=== PATIENT | female | born 1965 | race Caucasian/White ===

== ENCOUNTER → 2016-07-18 | Outpatient (CLI) | payer OTHER ==
[~2016-07-18] MED LIST: ESCI1TAB6 PO; FERR1TAB23 PO; FOLI1TAB7 PO; GABA-113 PO; HYDR-3419 PO; HYDR-5688 PO; HYDR25TA4 PO; MTR600X PO; ZNF4 PO
--- NOTE | 2016-07-18 11:14 | DIAGNOSTIC IMAGING REPORT ---
LUMBAR SPINE MRI HISTORY: Back pain. Lumbar radiculopathy. M54.16 Lumbar [id number] TECHNIQUE: Multiplanar multisequence MRI of the lumbar spine was performed without the use of contrast. COMPARISON: 03/20/2014 FINDINGS: For the purpose of the report the L5-S1 disc space will be located on axial image 27 of 30. Moderate degenerative disc changes throughout. This is similar as compared to the prior study. No evidence for compression deformity. L1-L2: No significant central canal or neural foraminal narrowing. L2-L3: Minimal broad-based disc bulge. Mild narrowing left neuroforamina. No major change in the prior study read L3-L4: Mild central disc herniation. Slightly progressive from the prior study. Mild impact central aspect anterior thecal sac. Minimal narrowing of the neuroforamina bilaterally. L4-L5: Mild broad-based disc herniation. Stable cyst slightly increased in prominence of the prior study. L5-S1: Mild left central disc herniation. Similar compared to the prior study. IMPRESSION: 1. Bulging discs and mild disc herniations at multiple levels as discussed. 2. Mild to moderate impact upon the thecal sac most prominent at L3-L4 and L4-L5 minimally progressive from the prior study. 3. Moderate degenerative disc change as well as degenerative changes of posterior facets unchanged from the prior study. Electronically signed by: Jovanny Langston M.D. 07/18/2016 11:12 AM Dictated Date/Time: 07/18/2016 11:00 AM
== END | disposition home or self-care (01) ==
LOC: C.MRI 09:54
PROVIDERS: ATTEND Nurse Practitioner
DX: M47.26 Other spondylosis with radiculopathy, lumbar region (principal); M51.16 Intervertebral disc disorders with radiculopathy, lumbar region

== ENCOUNTER 2016-09-03 09:39 | Emergency (ER) | payer OTHER ==
[~2016-09-03] VITALS: Ht 165.1 cm; Wt 68.1 kg
[~2016-09-03 09:39] MED LIST changes: -ESCI1TAB6 PO; -FOLI1TAB7 PO; -GABA-113 PO; -HYDR-5688 PO; -ZNF4 PO
[2016-09-03 09:40] VITALS: TEMP 36.6; Ht 165.1 cm; Wt 68.1 kg
[2016-09-03] MEDS ORDERED: OXYCODONE HCL IR 5 MG TAB (IMMEDIATE RELEASE) PO STA (09:53)
[2016-09-03] MEDS ORDERED: FOLI1TAB7 PO (10:28)
[2016-09-03] MEDS ORDERED: ESCI1TAB6 PO (10:36)
[2016-09-03] MEDS ORDERED: ZNF4 PO (10:36)
[2016-09-03] MEDS ORDERED: GABA-113 PO (10:36)
[2016-09-03] MEDS ORDERED: KETOROLAC TROMETHAMINE 60 MG/2 ML VIAL IM STA (11:01)
[2016-09-03] MEDS ORDERED: MoRPHine SULFATE 10 MG/ML CARP/VIAL IM STA (11:01)
[2016-09-03] MEDS ORDERED: DIPHTHERIA/TETANUS/PERTUSSIS 0.5 ML SYR/VIAL IM. ONE (11:15)
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
[2016-09-03] MEDS ORDERED: HYDR-5688 PO (12:40)
[2016-09-03 12:43] VITALS: BP 172/134; PULSE 63; O2SAT 97
== END 2016-09-03 12:44 | disposition home or self-care (01) ==
LOC: C.EDB 09:41
DX: T20.10XA Burn of first degree of head, face, and neck, unspecified site, initial encounter (principal); X03.0XXA Exposure to flames in controlled fire, not in building or structure, initial encounter; F17.210 Nicotine dependence, cigarettes, uncomplicated; Z90.711 Acquired absence of uterus with remaining cervical stump; Z79.899 Other long term (current) drug therapy; Z23 Encounter for immunization

== ENCOUNTER → 2017-03-12 | Outpatient (CLI) | payer OTHER ==
[~2017-03-12] MED LIST changes: +ESCI1TAB6 PO; -FERR1TAB23 PO; +FOLI1TAB7 PO; +GABA-113 PO; -HYDR-3419 PO; -HYDR25TA4 PO; -MTR600X PO; +ZNF4 PO
[2017-03-12 17:56] LABS: BASO % 0.9 %; BASO ABS # 0.06 K/uL (0-0.2); COMPLETE YES; EOS % 2.6 %; HEMATOCRIT 46.2 % (37-47); IG% 0.3 %; LYMPH % 34.3 %; LYMPH ABS # 2.22 K/uL (1.2-3.4); MEAN CELL VOLUME 103.8 fL (80-100); MEAN CORPUSCULAR HEMOGLOBIN 34.6 pg (25-34); MEAN CORPUSCULAR HGB CONC 33.3 g/dl (32-36); MEAN PLATELET VOLUME 10.7 fL (7.4-10.4); MONO % 11.9 %; PLATELET COUNT 301 K/uL (130-400); RED BLOOD COUNT 4.45 M/uL (4.2-5.4); WHITE BLOOD COUNT 6.47 K/uL (4.8-10.8)
[2017-03-12 18:06] LABS: ALT/SGPT 33 U/L (12-78); AST/SGOT 26 U/L (15-37); BLOOD UREA NITROGEN 10 mg/dl (7-18); BUN/CREATININE RATIO 12.8 (10-20); CALCIUM 9.4 mg/dl (8.5-10.1); CARBON DIOXIDE 31 mmol/L (21-32); CHLORIDE 107 mmol/L (98-107); CHOLESTEROL 183 mg/dl (0-200); CREATININE 0.76 mg/dl (0.60-1.20); GLUCOSE 104 mg/dl (70-99); POTASSIUM 3.9 mmol/L (3.5-5.1); SODIUM 139 mmol/L (136-145)
[2017-03-12 18:11] LABS: URINE APPEARANCE CLEAR (CLEAR); URINE BILIRUBIN NEG (NEG); URINE COLOR YELLOW; URINE NITRITE NEG (NEG); URINE PH 6.5 (4.5-7.5); URINE SPECIFIC GRAVITY 1.022 (1.000-1.030); UROBILINOGEN NEG (NEG); ZZUR CULT IF INDIC CLEAN CATCH NO
[2017-03-12 18:13] LABS: MANUAL MICROSCOPIC REQUIRED? NO; REVIEW REQ? NO
[2017-03-12 18:14] LABS: ALB/GLOB RATIO 0.9 (0.9-2); ALKALINE PHOSPHATASE 110 U/L (45-117); CHOLESTEROL/HDL RATIO 2.7; HDL CHOLESTEROL 67 mg/dl; LDL CHOLESTEROL CALCULATED 100 mg/dl; THYROID STIMULATING HORMONE 0.853 uIu/ml (0.300-4.500); TRIGLYCERIDES 81 mg/dl (0-150); VERY LOW DENSITY LIPOPROT CALC 16 mg/dl
== END | disposition home or self-care (01) ==
LOC: C.LABBFT 11:55
PROVIDERS: ATTEND Physician Assistant Medical
DX: R63.4 Abnormal weight loss (principal)

== ENCOUNTER → 2017-04-27 | Outpatient (CLI) | payer OTHER ==
[~2017-04-27] MED LIST changes: -FOLI1TAB7 PO; +FOLI1TAB8 PO
[2017-04-28 06:48] LABS: HEMOGLOBIN A1C 5.4 % (4.5-5.6)
== END | disposition home or self-care (01) ==
LOC: C.LABBFT 12:07
PROVIDERS: ATTEND Physician Assistant Medical
DX: R79.9 Abnormal finding of blood chemistry, unspecified (principal)

== ENCOUNTER → 2017-05-01 | Outpatient (CLI) | payer OTHER | END | disposition home or self-care (01) | LOC: C.RAD1850 11:42 | DX: R05 Cough (principal) ==

== ENCOUNTER 2017-11-22 13:45 | Emergency (ER) | payer OTHER ==
[~2017-11-22] VITALS: Ht 165.1 cm; Wt 61.8 kg
[2017-11-22 13:47] VITALS: TEMP 36.8; Ht 165.1 cm; Wt 61.8 kg
--- NOTE | 2017-11-22 14:37 | DIAGNOSTIC IMAGING REPORT ---
R HAND MIN 3 VIEWS ROUTINE CLINICAL HISTORY: Right hand pain. Fall. COMPARISON: Right hand radiographs July 10, 2011. FINDINGS: Rings are present on the third, fourth and fifth fingers. A nonunited scaphoid waist fracture similar in appearance to exam of July 10, 2011. There is an age indeterminate fracture of the distal shaft of the right fifth metacarpal. This fracture may be acute. No additional acute fractures are identified. IMPRESSION: 1. Mildly angulated fracture of the distal shaft of the right fifth metacarpal. This fracture is age indeterminate and may be acute. 2. 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 Electronically signed by: Que Flores M.D. 11/22/2017 2:36 PM Dictated Date/Time: 11/22/2017 2:33 PM
[2017-11-22] MEDS ORDERED: LISI10TA PO (14:48)
[2017-11-22] MEDS ORDERED: KETO10TA PO (15:02)
[2017-11-22 15:14] VITALS: BP 181/111; PULSE 65; O2SAT 98
--- NOTE | 2017-11-24 05:56 | EMERGENCY ROOM VISIT NOTE ---
ED Visit Note First contact with patient: 13:56 Chief Complaint: I think I broke my right hand. History of Present Illness: Ms. Grady is a 52-year-old white female who ambulates into the ED complaining of right hand pain. Patient reports approximately 2 hours ago she reports she was gardening and fell and landed on her right hand. She denies lightheaded and dizziness before the fall, striking her head or having a loss of consciousness at the time of the fall and she denies all signs of head injury. She reports she immediately had pain over the right fourth and fifth metacarpals. Since that time her pain has been constant. She describes her discomfort as a combination of sharp and throbbing. She rates her discomfort 9/ 10. Her pain is minimally extending to the inferior border of the wrist. Her pain worsens with all movements and palpation. She has not identified any alleviating factors related to the pain. She has not taken any medications for pain prior to arrival at the hospital. Associated with her pain she reports she has a tingling sensation in her fingers. Historically patient reports that she fell approximately 8-9 months ago injuring her hand and felt like it could have been broken but never sought medical attention. Additionally she denies neck pain, shoulder pain, forearm pain, hand weakness/ numbness. Review of Systems: As noted above in history of present illness. Past Medical History: Lumbar radiculopathy, dysmenorrhagia. Current Medications: Medications Dose Route/Sig Max Daily Dose Days Date Category Prinivil (Lisinopril) 10 Mg Tab 10 Mg PO DAILY 11/22/17 Reported Neurontin (Gabapentin) 300 Mg Cap 300 Mg PO TID 09/03/16 Reported Allergies to Medications: Formaldehyde, latex. Social History: Patient is not employed; she feels safe in her home environment ; she admits to tobacco use. Physical Examination: Vital Signs: Date Time Temp Pulse Resp B/P (MAP) Pulse Ox O2 Delivery O2 Flow Rate FiO2 11/22/17 15:14 65 20 181/111 98 Room Air 11/22/17 13:47 36.8 73 16 191/106 96 Room Air GENERAL: 52-year-old female in moderate distress due to pain, nontoxic- appearing, afebrile and hemodynamically stable. NEUROLOGICAL: Awake, alert and oriented to person, place and time. Answering questions appropriately and following commands. Normal gait. SKIN: Warm, dry and pink. No soft tissue trauma noted. HEENT: Atraumatic and normocephalic. RIGHT UPPER EXTREMITY: No gross bony deformity. No tenderness in the shoulder, upper arm, elbow and forearm. Moderate tenderness of the fourth and fifth metatarsals without bony deformity, bony crepitus. Mild swelling but no ecchymosis. She refused to do range of motion of the fingers at the PIP and DIP joint level. ED Course: Patient is assessed as noted above. Patient's medication list was reviewed. Patient was given ice for pain and comfort. Right Hand X-Rays: Were read by myself and the radiologist showing a mildly angulated fracture of the distal shaft of the fifth metacarpal of questionable age. 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 Patient's wrist was placed in an Ortho-Glass ulnar gutter splint. Patient was educated about today's findings and instructed on her treatment plan ; she verbalizes understanding and agreement with this plan. Clinical Impression: Fracture fifth metacarpal right hand. Disposition: Patient discharged to home in stable condition; prior to departure she was reassessed and subjectively reported she was feeling the same. Plan: Patient was encouraged to continue her current narcotic prescription plan. Patient was prescribed 10 mg Toradol every 6 hours to alternate between her narcotics. Patient was encouraged use ice on the area for pain and swelling 5-6 times a day for 20-30 minutes. Patient was encouraged to stay in her splint until followed up with her client resolution specialist for definitive care and treatment. Patient was encouraged return the ED for worsening/uncontrolled pain, uncontrolled swelling, hand weakness/numbness/tingling or any new/concerning symptoms.
== END 2017-11-22 15:32 | disposition home or self-care (01) ==
LOC: C.EDB 13:46 → C.EDD 15:32
DX: S62.326A Displaced fracture of shaft of fifth metacarpal bone, right hand, initial encounter for closed fracture (principal); W19.XXXA Unspecified fall, initial encounter; Y93.H2 Activity, gardening and landscaping; M54.16 Radiculopathy, lumbar region; Z91.040 Latex allergy status; Z72.0 Tobacco use

== ENCOUNTER 2022-06-24 18:01 | Inpatient (IN) ==
[2022-06-24] MEDS ORDERED: MoRPHine SULFATE 10 MG/ML CARP/VIAL IV STA (18:15)
[2022-06-24] MEDS ORDERED: METOCLOPRAMIDE HCL INJ 5 MG/ML 2 ML VIAL IV STA (18:15)
[2022-06-24] MEDS ORDERED: SODIUM CHLORIDE 0.9% 1000ML 2,000 ML IV ONE (18:15)
--- NOTE | 2022-06-24 18:15 | Emergency Department Note ---
Impression & Plan Abdominal pain, Vomiting, Acute dehydration ED Provider Note NAME: MUKESH GUIDO AGE: 57 SEX: F : 1965 ARRIVES VIA: Ambulance INFORMANT: Patient ED PROVIDER(S): Miky Momin DO CHIEF COMPLAINT: abdominal pain HPI: Patient is a 57-year-old female who presents to the ER for severe mid abdominal pain rating up to the left. Associated with nausea and vomiting. Started earlier today. Has been getting worse. Denies any headache or change in vision. No chest pain or shortness of breath. No cough. No dysuria, urgency, or frequency. Last menstrual period was several weeks ago. Pain is currently a 10 out of 10. PAST MEDICAL HISTORY:See Below PAST SURGICAL HISTORY:See Below FAMILY HISTORY:See Below SOCIAL HISTORY:See Below HOME MEDICATIONS:See Below ALLERGIES:See Below VITALS:See Below PHYSICAL EXAMINATION: GENERAL: Sitting up in bed, alert, moderate distress holding abdomen EYE EXAM: normal conjunctiva. OROPHARYNX:mucous membranes are moist LUNGS: Clear to auscultation. Normal chest wall mechanics HEART: no murmurs, S1 normal and S2 normal ABDOMEN: abdomen soft, non-tender, normo-active bowel sounds, no masses, no rebound or guarding. UPPER EXTREMITIES: upper extremities are grossly normal. LOWER EXTREMITIES: No pitting edema. NEURO EXAM: Normal sensorium, cranial nerves II-XII grossly intact, normal speech, no gross weakness of arms, no gross weakness of legs. MEDICAL DECISION MAKING: Patient is a 57-year-old female who presents to the ER for severe mid periumbilical abdominal pain. IV was established and blood work was obtained. Labs show mild leukocytosis of 14,000. Hemoglobin was elevated 16 secondary to contraction/volume depletion. BMP with mild hypokalemia 3.3 LFTs bilirubin was unremarkable. Lipase was normal. UA with small amount of ketones. Alcohol was only 10. COVID-negative. CT abdomen pelvis showed no acute pathology. She was given IV fluids morphine Dilaudid as well as Zofran and Reglan. She still had some intermittent vomiting and abdominal pain. She notes it comes and goes in waves. She is updated bedside. Pressures were still fairly elevated at about 200. She did not take her medications. Discussed with Dr. Brooke for further evaluation management and treatment. Triage Nursing notes reviewed. Limited review of prior medical records performed Vital Signs: reviewed and remarkable for HTN Differential diagnosis: Differential diagnoses includes but is not limited to gastritis, peptic ulcer disease, GERD, gallbladder disease, pancreatitis, small bowel obstruction, appendicitis, diverticulitis, hernia, urinary tract infection, torsion, [/ectopic (if female)], perforation, trauma, infectious. ER treatment provided: See below Diagnostics interpreted by me include EKG and cardiac monitoring as listed below: -Cardiac Monitoring: An order was placed for continuous cardiac monitoring. The monitor shows a rate of 60 with sinus rhythm. -ECG: none -Laboratory studies:Interpreted by me as stated above in MDM and shown below. Imaging studies: Xrays: As interpreted by me:none CTs show: CT abdomen pelvis showed no acute pathology per radiology Consultation(s): Discussed with Dr. Dean Soler for further evaluation management and treatment Procedures:none Critical Care: None Past Med/Surg History Medical History (Updated 06/24/22 @ 22:02 by Miky Momin DO) Carpal tunnel syndrome Carpal tunnel syndrome of left wrist Hypertension Insomnia Lumbar radiculopathy Microscopic hematuria S/P partial hysterectomy Seasonal allergies Smoker Vaginismus Vertigo Surgical History (Updated 04/15/21 @ 13:12 by Octavia Davis RN) H/O: hysterectomy History of History of tonsillectomy Family History (Updated 09/12/21 @ 16:10 by Madelaine Dickens LPN) Father Lung cancer Mother Lung cancer Grandmother Cancer Other Myocardial infarction Denies family history of Ovarian cancer Prostate cancer Breast cancer Colorectal cancer Social History (Updated 11/14/21 @ 13:51 by HAZEL Rose) Smoking Status: Current every day smoker Tobacco Type: Cigarettes Age Started Using Tobacco: 17; packs per day: 1; Cigarettes Per Day: 20-30; Second Hand Exposure: No; Hx Alcohol Use: Yes (wine socially ) Alcohol type: wine Alcohol Intake Frequency: 2-3 x/Week Hx Substance Use: No Preferred Language: Swazi Hearing Ability: Normal 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: No marital status: Current Living Situation: Family current occupational status: employed 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, 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 How many Children do You have: 2 Feels Safe at Home: Yes during the past year weight has: remained stable Allergies Allergies Allergy/AdvReac Type Severity Reaction Status Date / Time formaldehyde Allergy Mild hives Verified 06/24/22 19:36 amlodipine Allergy Unknown Unknown Verified 06/24/22 20:55 diltiazem Allergy Unknown Unknown Verified 06/24/22 20:55 latex Allergy Unknown itching Verified 06/24/22 19:36 levofloxacin Allergy Unknown Unknown Verified 06/24/22 20:56 simvastatin [From Zocor] Allergy Unknown Unknown Verified 06/24/22 20:57 prednisone AdvReac Unknown Verified 06/24/22 19:28 Home Meds Home Medications Medication Instructions Recorded Confirmed gabapentin 300 mg capsule 300 mg PO Q4 10/12/18 06/24/22 ibuprofen 800 mg tablet 800 mg PO TID 04/15/21 06/24/22 amlodipine 5 mg-olmesartan 40 mg 0.5 tab PO DAILY 06/24/22 06/24/22 tablet fexofenadine 180 mg tablet 0 mg PO DIRECTED 06/24/22 06/24/22 pantoprazole 40 mg tablet,delayed 40 mg PO BID 06/24/22 06/24/22 release Previous Rx's Medication Instructions Recorded albuterol sulfate 90 mcg/actuation 2 puff inhalation Q6H PRN 10/12/20 aerosol inhaler (ProAir HFA) shortness of breath or wheezing #8.5 grams cyclobenzaprine 10 mg tablet 10 mg PO TID PRN muscle spasm #30 03/18/22 tabs Results & Data (ED) Vital Signs Vital Signs - 24 hr 06/24/22 18:08 06/24/22 18:13 06/24/22 18:14 Temperature 36.4 C L Temperature Source Oral Pulse Rate 58 L 58 L 57 L Pulse Rate from SpO2 Sensor 63 Pulse Rhythm Regular Pulse Strength Normal Respiratory Rate 26 H 22 Respiratory Effort / Characteristics Non-Labored Respiratory Depth Normal Respiratory Pattern Regular Blood Pressure 227/123 H 215/138 H Blood Pressure Mean 157 163 Pulse Oximetry 100 99 Oxygen Delivery Method Room Air Room Air Sepsis New/Unexplained Change in Mental Status N/A Sepsis Action Taken by Nursing No Action Required 06/24/22 18:02 06/24/22 18:18 06/24/22 18:18 Temperature Temperature Source Pulse Rate 63 51 L Pulse Rate from SpO2 Sensor 65 Pulse Rhythm Regular Pulse Strength Respiratory Rate 22 18 Respiratory Effort / Characteristics Respiratory Depth Respiratory Pattern Blood Pressure 215/138 H Blood Pressure Mean 163 Pulse Oximetry 97 95 Oxygen Delivery Method Room Air Sepsis New/Unexplained Change in Mental Status Sepsis Action Taken by Nursing 06/24/22 18:40 06/24/22 19:00 06/24/22 19:22 Temperature Temperature Source Pulse Rate 62 58 L Pulse Rate from SpO2 Sensor 57 L 66 Pulse Rhythm Pulse Strength Respiratory Rate 20 21 20 Respiratory Effort / Characteristics Respiratory Depth Respiratory Pattern Blood Pressure Blood Pressure Mean Pulse Oximetry 100 99 96 Oxygen Delivery Method Sepsis New/Unexplained Change in Mental Status Sepsis Action Taken by Nursing 06/24/22 19:22 06/24/22 19:30 06/24/22 19:30 Temperature Temperature Source Pulse Rate Pulse Rate from SpO2 Sensor 67 Pulse Rhythm Pulse Strength Respiratory Rate Respiratory Effort / Characteristics Respiratory Depth Respiratory Pattern Blood Pressure 224/110 H 222/115 H Blood Pressure Mean 148 150 Pulse Oximetry 98 Oxygen Delivery Method Sepsis New/Unexplained Change in Mental Status Sepsis Action Taken by Nursing 06/24/22 20:00 06/24/22 20:30 06/24/22 20:59 Temperature Temperature Source Pulse Rate 59 L 57 L 67 Pulse Rate from SpO2 Sensor 62 56 L 67 Pulse Rhythm Pulse Strength Respiratory Rate 20 20 19 Respiratory Effort / Characteristics Respiratory Depth Respiratory Pattern Blood Pressure Blood Pressure Mean Pulse Oximetry 95 98 99 Oxygen Delivery Method Sepsis New/Unexplained Change in Mental Status Sepsis Action Taken by Nursing 06/24/22 20:59 06/24/22 21:00 Temperature Temperature Source Pulse Rate 66 Pulse Rate from SpO2 Sensor 66 Pulse Rhythm Pulse Strength Respiratory Rate 20 Respiratory Effort / Characteristics Respiratory Depth Respiratory Pattern Blood Pressure 214/109 H Blood Pressure Mean 144 Pulse Oximetry 100 Oxygen Delivery Method Sepsis New/Unexplained Change in Mental Status Sepsis Action Taken by Nursing Laboratory Data 06/24/22 18:15 06/24/22 18:15 Lab Results 06/24/22 06/24/22 06/24/22 Range/Units 18:15 18:15 18:23 WBC 14.98 H (4.8-10.8) K/ul RBC 4.98 (4.20-5.40) M/uL Hgb 16.9 H (12.0-16.0) g/dl POC Hgb 17.3 H (12.0-16.0) g/dl Hct 48.2 H (37.0-47.0) % POC Hct 51 H (37-47) % MCV 96.8 (80.0-100.0) fL MCH 33.9 (25.0-34.0) pg MCHC 35.1 (32.0-36.0) g/dL RDW Std Deviation 43.1 (36.4-46.3) fL RDW Coeff of Sarahi 12.1 (11.5-14.5) % Plt Count 250 (130-400) K/uL MPV 10.8 (9.4-12.4) fL Immature Gran % (Auto) 0.4 % Neut % (Auto) 90.3 % Lymph % (Auto) 4.2 % Arthur % (Auto) 4.1 % Eos % (Auto) 0.7 % Baso % (Auto) 0.3 % Neut # (Auto) 13.54 H (1.40-6.50) K/uL Lymph # (Auto) 0.63 L (1.2-3.4) K/uL Arthur # (Auto) 0.61 H (0.11-0.59) K/uL Eos # (Auto) 0.10 (0-0.50) K/uL Baso # (Auto) 0.04 (0-0.2) K/uL Immature Gran # (Auto) 0.06 (0.01-0.20) K/uL POC Sodium 143 (135-144) mmol/L Sodium 141 (136-145) mmol/L POC Potassium 3.3 (3.3-5.0) mmol/L Potassium 3.3 L (3.5-5.1) mmol/L POC Chloride 103 (101-112) mmol/L Chloride 105 (98-107) mmol/L Carbon Dioxide 27 (21-32) mmol/L POC Total CO2 24 (24-31) mmol/L Anion Gap 9 (3-11) POC Anion Gap 20.0 (16-25) mmol/L POC BUN 17 (7-18) mg/dl BUN 17 (6-23) mg/dl Creatinine 0.72 (0.6-1.2) mg/dl POC Creatinine 0.7 (0.6-1.3) mg/dl Est Cr Clr Drug Dosing Not Reportable Est GFR ( Amer) 108.5 ml/min Est GFR (Non-Af Amer) 93.6 ml/min BUN/Creatinine Ratio 23.6 H (10-20) Glucose 157 H (70-99(Fasting)) mg/dl POC Glucose (other) 158 H (70-99) mg/dl Calcium 9.7 (8.5-10.1) mg/dl POC Ioniz Calcium Camila 1.12 (1.12-1.32) mmol/l Total Bilirubin 0.9 (0.2-1.0) mg/dl AST 19 (13-39) U/L ALT 20 (7-52) U/L Alkaline Phosphatase 106 H (34-104) U/L Total Protein 8.5 H (6.0-8.3) gm/dl Albumin 5.3 H (3.4-5.0) gm/dl Globulin 3.2 (2.5-4.0) gm/dl Albumin/Globulin Ratio 1.7 (0.9-2) Lipase 31 (11-82) U/L Urine Color Urine Appearance (Clear) Urine pH (4.5-7.5) Ur Specific Mazon (1.000-1.030) Urine Protein (Negative) Urine Glucose (UA) (Negative) Urine Ketones (Negative) Urine Blood (Negative) Urine Nitrite (Negative) Urine Bilirubin (Negative) Urine Urobilinogen (Negative) Ur Leukocyte Esterase (Negative) Ethyl Alcohol mg/dL (<10.0) mg/dl SARS-CoV-2, RNA, NAAT (NEGATIVE) 06/24/22 06/24/22 06/24/22 Range/Units 18:43 19:52 20:22 WBC (4.8-10.8) K/ul RBC (4.20-5.40) M/uL Hgb (12.0-16.0) g/dl POC Hgb (12.0-16.0) g/dl Hct (37.0-47.0) % POC Hct (37-47) % MCV (80.0-100.0) fL MCH (25.0-34.0) pg MCHC (32.0-36.0) g/dL RDW Std Deviation (36.4-46.3) fL RDW Coeff of Sarahi (11.5-14.5) % Plt Count (130-400) K/uL MPV (9.4-12.4) fL Immature Gran % (Auto) % Neut % (Auto) % Lymph % (Auto) % Arthur % (Auto) % Eos % (Auto) % Baso % (Auto) % Neut # (Auto) (1.40-6.50) K/uL Lymph # (Auto) (1.2-3.4) K/uL Arthur # (Auto) (0.11-0.59) K/uL Eos # (Auto) (0-0.50) K/uL Baso # (Auto) (0-0.2) K/uL Immature Gran # (Auto) (0.01-0.20) K/uL POC Sodium (135-144) mmol/L Sodium (136-145) mmol/L POC Potassium (3.3-5.0) mmol/L Potassium (3.5-5.1) mmol/L POC Chloride (101-112) mmol/L Chloride (98-107) mmol/L Carbon Dioxide (21-32) mmol/L POC Total CO2 (24-31) mmol/L Anion Gap (3-11) POC Anion Gap (16-25) mmol/L POC BUN (7-18) mg/dl BUN (6-23) mg/dl Creatinine (0.6-1.2) mg/dl POC Creatinine (0.6-1.3) mg/dl Est Cr Clr Drug Dosing Est GFR ( Amer) ml/min Est GFR (Non-Af Amer) ml/min BUN/Creatinine Ratio (10-20) Glucose (70-99(Fasting)) mg/dl POC Glucose (other) (70-99) mg/dl Calcium (8.5-10.1) mg/dl POC Ioniz Calcium Camila (1.12-1.32) mmol/l Total Bilirubin (0.2-1.0) mg/dl AST (13-39) U/L ALT (7-52) U/L Alkaline Phosphatase (34-104) U/L Total Protein (6.0-8.3) gm/dl Albumin (3.4-5.0) gm/dl Globulin (2.5-4.0) gm/dl Albumin/Globulin Ratio (0.9-2) Lipase (11-82) U/L Urine Color Yellow Urine Appearance Clear (Clear) Urine pH 8.0 H (4.5-7.5) Ur Specific Mazon 1.020 (1.000-1.030) Urine Protein Negative (Negative) Urine Glucose (UA) Trace H (Negative) Urine Ketones 1+ H (Negative) Urine Blood Negative (Negative) Urine Nitrite Negative (Negative) Urine Bilirubin Negative (Negative) Urine Urobilinogen Negative (Negative) Ur Leukocyte Esterase Negative (Negative) Ethyl Alcohol mg/dL 10.0 H (<10.0) mg/dl SARS-CoV-2, RNA, NAAT NEGATIVE (NEGATIVE) Administered Medications Discontinued Medications Hydralazine HCl (Hydralazine Hcl 20 Mg/Ml Vial) 10 mg IV NOW STA Stop: 06/24/22 21:00 Last Admin: 06/24/22 21:20 Dose: 10 mg Documented By: CGK Hydromorphone HCl (Hydromorphone Inj 1 Mg/Ml Syringe) 1 mg IV NOW STA Stop: 06/24/22 19:33 Last Admin: 06/24/22 19:37 Dose: 1 mg Documented By: CGK Hydromorphone HCl (Hydromorphone Inj 0.5 Mg/0.5 Ml Syr) 0.5 mg IV NOW STA Stop: 06/24/22 20:54 Last Admin: 06/24/22 21:00 Dose: 0.5 mg Documented By: CGK Sodium Chloride (Nss 1000ml) 2,000 mls @ 999 mls/hr IV .Q2H1M ONE Stop: 06/24/22 20:15 Last Infusion: 06/24/22 20:23 Dose: 0 mls/hr Documented By: Admin: 06/24/22 18:20 Dose: 999 mls/hr Documented By: CGK Ioversol (Optiray 350 100ml) 87 ml IV ONCE ONE Stop: 06/24/22 18:30 Last Admin: 06/24/22 18:32 Dose: 87 ml Documented By: JELANI Metoclopramide HCl (Metoclopramide Hcl Inj 5 Mg/Ml 2 Ml Vial) 10 mg IV NOW STA Stop: 06/24/22 18:16 Last Admin: 06/24/22 18:22 Dose: 10 mg Documented By: CGK Morphine Sulfate (Morphine Sulfate 10 Mg/Ml Carp/Vial) 6 mg IV NOW STA Stop: 06/24/22 18:16 Last Admin: 06/24/22 18:21 Dose: 6 mg Documented By: CGK Ondansetron HCl (Ondansetron Inj 2 Mg/Ml 2 Ml Vial) 4 mg IV NOW STA Stop: 06/24/22 19:33 Last Admin: 06/24/22 19:35 Dose: 4 mg Documented By: BetterflyK Imaging Data Radiologist's Impression: Abdomen/Pelvis CT 06/24/22 18:11 CT SCAN OF THE ABDOMEN AND PELVIS WITH IV CONTRAST CLINICAL HISTORY: Left lower quadrant abdominal pain. COMPARISON STUDY: Abdominal CT dated 04/03/2021. TECHNIQUE: Following the IV administration of 87 cc of Optiray 350, CT scan of the abdomen and pelvis is performed from the lung bases to the proximal femora. Images are reviewed in the axial, sagittal, and coronal planes. IV contrast was administered without complication. A dose lowering technique was utilized adhering to the principles of ALARA. The examination is degraded by streak artifact from the arms which could not be elevated above the abdomen or pelvis. CT DOSE: 623.29 mGy.cm FINDINGS: Lung bases: The heart is normal in size and without pericardial effusion. The lung bases are clear noting bibasilar scarring/atelectasis. Liver: The contrast-enhanced liver is normal in size, contour, and attenuation. There is no intrahepatic biliary ductal dilatation. The hepatic veins and portal veins are patent. Gallbladder: Unremarkable. Spleen: Normal in size and attenuation. Pancreas: Unremarkable. Adrenal glands: Unremarkable. Kidneys: The contrast enhanced kidneys are normal in size and without hydronephrosis. The kidneys enhance and excrete symmetrically. Abdominal vasculature: The abdominal aorta is normal in course and caliber noting mild atherosclerotic calcification. Bowel: There is mild colonic diverticulosis without CT evidence of acute diverticulitis. No bowel obstruction is seen. [id number] fecal retention is noted in the right colon. The appendix is well-visualized and normal. Peritoneum: There is no intraperitoneal free air or abdominal ascites. There is a fat-containing umbilical hernia. A fat-containing supraumbilical hernia is seen on image #86. Lymphadenopathy: None. Pelvic viscera: The bladder is normal as visualized. The uterus is surgically absent. No adnexal lesion is seen. Skeletal structures: The skeletal structures are osteopenic. There is mild to moderate lumbosacral spondylosis. No lytic or blastic lesions are seen. IMPRESSION: 1. No acute infectious or inflammatory findings are identified in the abdomen or pelvis. 2. Mild colonic diverticulosis without CT evidence of acute diverticulitis. 3. Additional findings as above. ACT 112: Negative or not required by law. Electronically signed by: Speedy Loyola M.D. 06/24/2022 6:58 PM Discharge Plan Visit Data Chief Complaint: Abdominal Pain Stated Complaint: ABDOMINAL PAIN ED Provider: Miky Momin Discharge Problem: Abdominal pain, Vomiting, Acute dehydration Discharge Instructions Interventions: ED Discharge Assessment Last Done: 06/24/22 21:52 Forms Stand Alone Forms: One Touch EMR Prescriptions Prescriptions: No Action gabapentin 300 mg capsule 300 mg PO Q4 cyclobenzaprine 10 mg tablet 10 mg PO TID PRN (Reason: muscle spasm) Qty: 30 0RF albuterol sulfate [ProAir HFA] 90 mcg/actuation HFA aerosol inhaler 2 puff inhalation Q6H PRN (Reason: shortness of breath or wheezing) Qty: 8.5 0RF ibuprofen 800 mg tablet 800 mg PO TID fexofenadine [Eliza] 180 mg Tablet 0 mg PO DIRECTED pantoprazole 40 mg tablet,delayed release (DR/EC) 40 mg PO BID amlodipine-olmesartan 5-40 mg tablet 0.5 tab PO DAILY Rx Instructions: take half a tab a day Referrals Referrals: Matt Dixon DO [Primary Care Provider] -
[2022-06-24] MEDS ORDERED: OPTIRAY 350 100ml IV ONE (18:29)
[2022-06-24 18:37] LABS: iSTAT Creatinine 0.7 mg/dl (0.6-1.3); iSTAT Hemoglobin 17.3 g/dl (12.0-16.0); iSTAT Ionized Calcium 1.12 mmol/l (1.12-1.32); iSTAT Potassium 3.3 mmol/L (3.3-5.0)
[2022-06-24 18:54] LABS: Alanine Aminotransferase 20 U/L (7-52); Albumin Globulin Ratio 1.7 (0.9-2); Albumin Level 5.3 gm/dl (3.4-5.0); Alkaline Phosphatase 106 U/L (34-104); Anion Gap 9 (3-11); Aspartate Aminotransferase 19 U/L (13-39); BUN Creatinine Ratio 23.6 (10-20); Bilirubin,Total 0.9 mg/dl (0.2-1.0); Blood Urea Nitrogen 17 mg/dl (6-23); Calcium 9.7 mg/dl (8.5-10.1); Carbon Dioxide 27 mmol/L (21-32); Chloride 105 mmol/L (98-107); Est GFR (African American) 108.5 ml/min; Est GFR (Non-African American) 93.6 ml/min; Globulin 3.2 gm/dl (2.5-4.0); Glucose 157 mg/dl (70-99(Fasting)); Lipase 31 U/L (11-82); Potassium 3.3 mmol/L (3.5-5.1); Sodium 141 mmol/L (136-145); Total Protein 8.5 gm/dl (6.0-8.3)
[2022-06-24 18:54] LABS: Appearance Urine Clear (Clear); Bilirubin Urine Negative (Negative); Blood Urine Negative (Negative); Color Urine Yellow; Glucose Urine UA Trace (Negative); Ketones Urine 1+ (Negative); Leukocyte Esterase Urine Negative (Negative); Nitrite Urine Negative (Negative); Protein Urine Negative (Negative); Urobilinogen Urine Negative (Negative)
--- NOTE | 2022-06-24 19:00 | CT Scan Report ---
CT SCAN OF THE ABDOMEN AND PELVIS WITH IV CONTRAST CLINICAL HISTORY: Left lower quadrant abdominal pain. COMPARISON STUDY: Abdominal CT dated 04/03/2021. TECHNIQUE: Following the IV administration of 87 cc of Optiray 350, CT scan of the abdomen and pelvi s is performed from the lung bases to the proximal femora. Images are reviewed in the axial, sagittal , and coronal planes. IV contrast was administered without complication. A dose lowering technique wa s utilized adhering to the principles of ALARA. The examination is degraded by streak artifact from t he arms which could not be elevated above the abdomen or pelvis. CT DOSE: 623.29 mGy.cm FINDINGS: Lung bases: The heart is normal in size and without pericardial effusion. The lung bases are clear no ting bibasilar scarring/atelectasis. Liver: The contrast-enhanced liver is normal in size, contour, and attenuation. There is no intrahepa tic biliary ductal dilatation. The hepatic veins and portal veins are patent. Gallbladder: Unremarkable. Spleen: Normal in size and attenuation. Pancreas: Unremarkable. Adrenal glands: Unremarkable. Kidneys: The contrast enhanced kidneys are normal in size and without hydronephrosis. The kidneys enh ance and excrete symmetrically. Abdominal vasculature: The abdominal aorta is normal in course and caliber noting mild atheroscleroti c calcification. Bowel: There is mild colonic diverticulosis without CT evidence of acute diverticulitis. No bowel obs truction is seen. [id number] fecal retention is noted in the right colon. The appendix is well -visualized and normal. Peritoneum: There is no intraperitoneal free air or abdominal ascites. There is a fat-containing umbi lical hernia. A fat-containing supraumbilical hernia is seen on image #86. Lymphadenopathy: None. Pelvic viscera: The bladder is normal as visualized. The uterus is surgically absent. No adnexal lesi on is seen. Skeletal structures: The skeletal structures are osteopenic. There is mild to moderate lumbosacral sp ondylosis. No lytic or blastic lesions are seen. IMPRESSION: 1. No acute infectious or inflammatory findings are identified in the abdomen or pelvis. 2. Mild colonic diverticulosis without CT evidence of acute diverticulitis. 3. Additional findings as above. ACT 112: Negative or not required by law. Electronically signed by: Speedy Loyola M.D. 06/24/2022 6:58 PM
[2022-06-24 19:05] LABS: Hematocrit (blood only) 48.2 % (37.0-47.0); Hemoglobin 16.9 g/dl (12.0-16.0); Mean Corpuscular Hemoglobin 33.9 pg (25.0-34.0); Mean Corpuscular Hgb Conc 35.1 g/dL (32.0-36.0); Mean Corpuscular Volume 96.8 fL (80.0-100.0); Mean Platelet Volume 10.8 fL (9.4-12.4); Platelet Count 250 K/uL (130-400); RDW Coefficient of Variation 12.1 % (11.5-14.5); RDW Standard Deviation 43.1 fL (36.4-46.3); Red Blood Count 4.98 M/uL (4.20-5.40); White Blood Count 14.98 K/ul (4.8-10.8)
[2022-06-24 19:27] LABS: Basophils # (auto) 0.04 K/uL (0-0.2); Basophils % (auto) 0.3 %; Eosinophils % (auto) 0.7 %; Immature Granulocytes # (auto) 0.06 K/uL (0.01-0.20); Immature Granulocytes % (auto) 0.4 %; Lymphocytes # (auto) 0.63 K/uL (1.2-3.4); Lymphocytes % (auto) 4.2 %; Monocytes # (auto) 0.61 K/uL (0.11-0.59); Monocytes % (auto) 4.1 %; Neutrophils # (auto) 13.54 K/uL (1.40-6.50); Neutrophils % (auto) 90.3 %
[2022-06-24] MEDS ORDERED: HYDROmorphone INJ 1 MG/ML SYRINGE IV STA (19:32)
[2022-06-24] MEDS ORDERED: ONDANSETRON INJ 2 MG/ML 2 ML VIAL IV STA (19:32)
[2022-06-24] MEDS ORDERED: HYDROmorphone INJ 0.5 MG/0.5 ML SYR IV STA (20:53)
--- NOTE | 2022-06-24 20:55 | History & Physical Report ---
Date of Service June 24, 2022 Assessment & Plan (1) Nausea & vomiting: Plan: Sharri Grady is a 57-year-old female with past medical history of hypertension, GERD, hyperlipidemia, tobacco use, alcohol use disorder, liver lesion, chronic lumbar pain, multiple thyroid nodules who presents due to acute abdominal pain with associated nausea and vomiting of 1 day duration. Abdominal pain Unclear etiology at this time most likely gastritis, but DDx includes peptic ulcer disease, bowel ischemia, gallbladder disease, pancreatitis, appendicitis, hernia, UTI Abdomen/pelvis CT showing no acute infectious or inflammatory findings, mild c olonic diverticulosis without evidence of acute diverticulitis, fat-containing umbilical hernia, fat-containing supraumbilical hernia, no other abnormalities No mention of bowel ischemia on CT A/P with IV contrast however, pain at this time is out of proportion to physical exam and as such, will order mesenteric duplex US No obvious signs of infectious/inflammatory etiology on CT but patient does have leukocytosis with left shift Zosyn 4.5 g IV x1, can consider further dosing depending on workup Will treat for possible gastritis with pantoprazole 40 mg IV twice daily, famotidine 20 mg IV twice daily, Carafate 1 g p.o. 4 times daily Analgesics and antiemetics as needed N.p.o. for now LR at 125 cc/h for maintenance Admit to med telemetry Leukocytosis with left shift Currently unclear etiology without any obvious source of infection Likely some degree of hemoconcentration per elevated white count and hemoglobin, BUN/creatinine ratio CT A/P as above, no signs of cellulitis, no respiratory symptoms, no urinary symptoms with negative UA Procalcitonin ordered Blood cultures ordered Zosyn x1 as above CBC in a.m. 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 labs DVT prophylaxis: SCDs, hold chemoprophylaxis at this time FEN/GI: N.p.o., LR at 125 cc/h Dispo: Admit to med telemetry CODE STATUS: Full (2) Leukocytosis: (3) Abdominal pain: (4) Alcohol use disorder: (5) Hypertension: (6) Hyperkalemia: History of Present Illness Primary Care Provider: Matt Dixon DO Sharri Grady is a 57-year-old female with past medical history of hypertension, GERD, hyperlipidemia, tobacco use, alcohol use disorder, liver lesion, chronic lumbar pain, multiple thyroid nodules who presents due to acute abdominal pain with associated nausea and vomiting of 1 day duration. She states her symptoms started today around mid-morning and have been progressing. Pain is at epigastrium and left upper/left lower quadrants. No stool changes, constipation, diarrhea, bloody stools, dark stools. Reports associated nausea and vomiting unable to quantify how many times she has vomited. Denies any blood or coffee-ground emesis. She has not been around anyone that is sick as far she is aware. Denies fever, chills, headache, dizziness, vision changes, chest pain, shortness of breath, cough, dysuria, urgency, frequency. She does admit to daily alcohol use of 2-3 drinks per day. Drinks vodka, whiskey, or wine -- states that each drink is a rocks glass of liquor. Did drink a Bloody [place] this morning prior to onset of symptoms. Work-up in ED: CT A/P: No acute infectious or inflammatory findings are identified in the abdomen or pelvis. Mild colonic diverticulosis without CT evidence of acute diverticulitis. Additional findings per radiology read. Lab work showing leukocytosis of 14.98, hemoglobin 16.9, platelet count 250. Potassium 3.3, alk phos 106, normal AST/ALT/T. bili. Total protein 8.5, albumin 5.3, normal lipase, UA showing trace glucose and 1+ ketones, no nitrites or leukocyte esterase. COVID-negative. Allergies Allergy/AdvReac Type Severity Reaction Status Date / Time formaldehyde Allergy Mild hives Verified 06/24/22 19:36 amlodipine Allergy Unknown Unknown Verified 06/24/22 20:55 diltiazem Allergy Unknown Unknown Verified 06/24/22 20:55 latex Allergy Unknown itching Verified 06/24/22 19:36 levofloxacin Allergy Unknown Unknown Verified 06/24/22 20:56 simvastatin [From Zocor] Allergy Unknown Unknown Verified 06/24/22 20:57 prednisone AdvReac Unknown Verified 06/24/22 19:28 Home Medications Medication Instructions Recorded Confirmed Type gabapentin 300 mg capsule 300 mg PO Q4 10/12/18 06/24/22 History albuterol sulfate 90 mcg/actuation 2 puff inhalation Q6H PRN 10/12/20 06/24/22 Rx aerosol inhaler (ProAir HFA) shortness of breath or wheezing #8.5 grams cyclobenzaprine 10 mg tablet 10 mg PO TID PRN muscle spasm #30 03/18/22 06/24/22 Rx tabs amlodipine 5 mg-olmesartan 40 mg 0.5 tab PO DAILY 06/24/22 06/24/22 History tablet fexofenadine 180 mg tablet 0 mg PO DIRECTED 06/24/22 06/24/22 History pantoprazole 40 mg tablet,delayed 40 mg PO BID 06/24/22 06/24/22 History release famotidine 20 mg tablet 20 mg PO DAILY #30 tabs 06/25/22 Rx ondansetron 4 mg disintegrating 4 mg PO Q12H PRN nausea and 06/25/22 Rx tablet vomiting #10 tabs Past Med/Surg History Medical History (Updated 06/24/22 @ 22:02 by Miky Momin DO) Carpal tunnel syndrome Carpal tunnel syndrome of left wrist Hypertension Insomnia Lumbar radiculopathy Microscopic hematuria S/P partial hysterectomy Seasonal allergies Smoker Vaginismus Vertigo Surgical History (Updated 04/15/21 @ 13:12 by Octavia Davis RN) H/O: hysterectomy History of History of tonsillectomy Family History (Updated 09/12/21 @ 16:10 by Madelaine Dickens LPN) Father Lung cancer Mother Lung cancer Grandmother Cancer Other Myocardial infarction Denies family history of Ovarian cancer Prostate cancer Breast cancer Colorectal cancer Social History (Updated 11/14/21 @ 13:51 by HAZEL Rose) Smoking Status: Current every day smoker Tobacco Type: Cigarettes Age Started Using Tobacco: 17; packs per day: 1; Cigarettes Per Day: 20-30; Second Hand Exposure: Yes; Do You Dip or Chew Tobacco: No; Tobacco Cessation Education Requested by Patient: No Hx Alcohol Use: Yes Alcohol type: hard liquor Alcohol Intake Frequency: 2-3 x/Week Hx Substance Use: No Preferred Language: Tongan Communication Ability: Effective Hearing Ability: Normal Exceptional Student Education Aide Required: No Beliefs That Will Affect Care: None marital status: Current Living Situation: Spouse current occupational status: employed 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 In severe pain. HEENT: EOMI. Dry mucous membranes. CHEST/LUNGS: CTAB A/P. No crackles, wheezes, rales, rhonchi. HEART: RRR. No m/g/r. No carotid bruits. ABDOMEN: Very TTP along left side of abdomen, both upper and lower; some epigastric TTP as well. Soft, BS+ x4. No rebound, Stallworth's negative. EXTREMITIES: No cyanosis, no clubbing, no edema SKIN: Warm and dry. No rashes or lesions. NEUROLOGIC: No FND. Results & Data Results & Data ([facility]) Vital Signs (Past 12 Hours) Vital Signs Temp Pulse Resp BP Pulse Ox O2 Del Method 06/24/22 19:00 58 L 21 99 06/24/22 18:40 62 20 100 06/24/22 18:18 215/138 H 06/24/22 18:18 51 L 18 95 06/24/22 18:02 63 22 97 Room Air 06/24/22 18:14 57 L 06/24/22 18:13 58 L 22 215/138 H 99 Room Air 06/24/22 18:08 36.4 C L 58 L 26 H 227/123 H 100 Room Air Code Status & VTE Plan VTE Prophylaxis Plan VTE Prophylaxis will be ordered: Yes Supervising Physician Co-Signing Physician Notes Attending addendum: I have physically seen this patient, have supervised the medical residents activities, and agree with the H&P unless as otherwise noted. Assessment and Plan: Intractable nausea and vomiting- CT scan abdomen and pelvis negative Unclear etiology at this time Differential including gastritis, peptic ulcer disease, bowel ischemia, gallbladder disease and others We will order mesenteric Dopplers to assess for possible ischemia NPO famotidine 20 mg IV every 12 hours LR at 125 mils per hour Famotidine 20 mg IV every 12 hours Zofran 4 mg IV every 6 hours as needed Compazine 10 mg IV every 6 hours as needed yes symptoms not relieved by Zofran May be secondary to alcohol use Send urine drug screen Alcohol use disorder- May be associated with gastritis, Peptic ulcer disease, esophagitis etc. Placed on SHANTA S protocol. Symptomatic treatment as above Hypertension- Likely not taking medications Resume amlodipine and telmisartan Status post hydralazine 10 mg IV in the ED Remaining orders and notations as noted Resident Activity Tracking Resident Involvement: Resident Care Provided Care Provided: Adult Hospital Medicine
[2022-06-24] MEDS ORDERED: hydrALAZINE HCL 20 MG/ML VIAL IV STA (20:59)
[2022-06-24] MEDS ORDERED: PROCHLORPERAZINE 10 MG in SYRINGE 8 ML IV PRN (21:56)
[2022-06-24] MEDS ORDERED: PROCHLORPERAZINE 5 MG/ML 2 ML VIAL ONE (22:00)
[2022-06-24] MEDS ORDERED: ALBUTEROL HFA 8 GM INHALER INH PRN (22:54)
[2022-06-24] MEDS ORDERED: LORazepam 2 MG/1 ML VIAL IV PRN (22:54)
[2022-06-24] MEDS ORDERED: ONDANSETRON INJ 2 MG/ML 2 ML VIAL IV PRN (22:54)
[2022-06-24] MEDS ORDERED: HYDROmorphone INJ 0.5 MG/0.5 ML SYR IV PRN (22:54)
[2022-06-24] MEDS ORDERED: ACETAMINOPHEN 1,000 MG/100 ML VIAL IV PRN (22:54)
[2022-06-24] MEDS ORDERED: CYCLOBENZAPRINE HCL 10 MG TAB PO PRN (22:54)
[2022-06-24] MEDS: LACTATED RINGER'S 1,000 ML IV SCH (23:11)
[2022-06-24] MEDS ORDERED: PIPERACILLIN/TAZOBACTAM 4.5 GM in DEXTROSE 5% 100 ML IV ONE (23:15)
--- NOTE | 2022-06-24 23:17 | Ultrasound Report ---
Exam(s): US OTHER duplex mesenteric EXAM: US Duplex mesenteric arteries. CLINICAL HISTORY: Reason for exam: r/o mesenteric ischemia. TECHNIQUE: Real-time duplex ultrasound scan of the mesenteric arteries. COMPARISON: No relevant prior studies available. FINDINGS: The exam was technically difficult, as the patient was uncooperative. Peak systolic velocities in the superior mesenteric artery were within normal limits, all measuring less than 275 cm/s. The peak systolic velocity recorded in the celiac trunk was elevated at 294 cm/s. This would indicate a stenosis of 70-99%. The peak systolic velocity in the aorta was recorded at 10 9 cm/s. 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 Electronically signed by: Hilario Aly MD 06/24/22 23:16 PM
[2022-06-24] MEDS: PANTOprazole 40 MG in SYRINGE 0 ML IV SCH (23:48)
[2022-06-24] MEDS: FAMOTIDINE 20 MG in SYRINGE 3 ML IV SCH (23:48)
[2022-06-25 00:11] LABS: Amphetamines+Metham, Urine Neg (Neg); Barbiturates, Urine Neg (Neg); Benzodiazepine, Urine Neg (Neg); Cocaine, Urine Neg (Neg); MDMA (Ecstacy), Urine Neg (Neg); Methadone, Urine Neg (Neg); Opiate, Urine Pos (Neg); Phencyclidine, Urine Neg (Neg)
[2022-06-25] MEDS: GABAPENTIN 300 MG CAP PO SCH ×4 (00:18→13:10)
[2022-06-25] MEDS ORDERED: OPTIRAY 320 500ml IV ONE (01:30)
[2022-06-25] MEDS: POTASSIUM CHLORIDE / WTR 10 MEQ/100 ML PLCT IV SCH ×4 (01:35→05:14)
--- NOTE | 2022-06-25 02:37 | CT Scan Report ---
Exam(s): CTA ABDOMEN + PELVIS With Contrast IV Amt: 116 ml optiray EXAM: CT Angiography Abdomen and Pelvis With Intravenous Contrast CLINICAL HISTORY: Reason for exam: abd pain, celiac trunk stenosis on mesenteric US. TECHNIQUE: Axial computed tomographic angiography images of the abdomen and pelvis with intravenous contrast. CTDI is 8.66 mGy and DLP is 425.37 mGy-cm. Automated exposure control was utilized for the study. A dose lowering technique was utilized adhering to the principles of ALARA. MIP reconstructed images were created and reviewed. CONTRAST: Patient received 116 ml optiray of IV contrast COMPARISON: No relevant prior studies available. FINDINGS: VASCULATURE: Aorta: No acute findings. No abdominal aortic aneurysm. No dissection. Celiac trunk and mesenteric arteries: There are separate origins of the splenic artery and the common hepatic artery, normal variant. No occlusion or stenosis. Renal arteries: No acute findings. No occlusion or significant stenosis. Iliac arteries: No acute findings. No occlusion or significant stenosis. Lung bases: Unremarkable. No mass. No consolidation. ABDOMEN: Liver: Unremarkable. No mass. Gallbladder and bile ducts: Unremarkable. No calcified stones. No ductal dilation. Pancreas: Unremarkable. No ductal dilation. No mass. Spleen: Unremarkable. No splenomegaly. Adrenals: Unremarkable. No mass. Kidneys and ureters: No hydronephrosis. No solid mass. Small amounts of perinephric fluid, worse on the right. Stomach and bowel: Unremarkable. No obstruction. No mucosal thickening. PELVIS: Appendix: No findings to suggest acute appendicitis. Bladder: Unremarkable. No mass. Reproductive: Unremarkable as visualized. ABDOMEN and PELVIS: Intraperitoneal space: Unremarkable. No significant fluid collection. No free air. Bones/joints: No acute fracture. No dislocation. Soft tissues: Unremarkable. Lymph nodes: Unremarkable. No enlarged lymph nodes. IMPRESSION: Normal arteries of the abdomen and pelvis. Electronically signed by: Hilario Aly MD 06/25/22 02:36 AM
[2022-06-25] MEDS ORDERED: hydrALAZINE HCL 20 MG/ML VIAL IV STA (03:11)
[2022-06-25] MEDS ORDERED: LORazepam 2 MG/1 ML VIAL IV STA (04:12)
[2022-06-25] MEDS ORDERED: HYDROmorphone INJ 0.5 MG/0.5 ML SYR IV STA (04:12)
[2022-06-25] MEDS ORDERED: Ativan PO Alcohol Withdrawal--Active Protocol PO PRN (04:13)
[2022-06-25] MEDS ORDERED: LORazepam 1 MG TAB PO PRN ×3 (04:13)
--- NOTE | 2022-06-25 07:22 | Hospitalist Progress Note ---
Date of Service June 25, 2022 Assessment & Plan (1) Nausea & vomiting: Plan: Sharri Grady is a 57-year-old female with past medical history of hypertension, GERD, hyperlipidemia, tobacco use, alcohol use disorder, liver lesion, chronic lumbar pain, multiple thyroid nodules who presents due to acute abdominal pain with associated nausea and vomiting of 1 day duration. Abdominal pain Unclear etiology at this time most likely gastritis, but DDx includes peptic ulcer disease, bowel ischemia, gallbladder disease, pancreatitis, appendicitis, hernia, UTI Abdomen/pelvis CT showing no acute infectious or inflammatory findings, mild c olonic diverticulosis without evidence of acute diverticulitis, fat-containing umbilical hernia, fat-containing supraumbilical hernia, no other abnormalities No mention of bowel ischemia on CT A/P with IV contrast however, pain at this time is out of proportion to physical exam and as such, will order mesenteric duplex US No obvious signs of infectious/inflammatory etiology on CT but patient does have leukocytosis with left shift Zosyn 4.5 g IV x1, can consider further dosing depending on workup Will treat for possible gastritis with pantoprazole 40 mg IV twice daily, famotidine 20 mg IV twice daily, Carafate 1 g p.o. 4 times daily Analgesics and antiemetics as needed N.p.o. for now LR at 125 cc/h for maintenance Admit to med telemetry Leukocytosis with left shift Currently unclear etiology without any obvious source of infection Likely some degree of hemoconcentration per elevated white count and hemoglobin, BUN/creatinine ratio CT A/P as above, no signs of cellulitis, no respiratory symptoms, no urinary symptoms with negative UA Procalcitonin ordered Blood cultures ordered Zosyn x1 as above CBC in a.m. 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 labs DVT prophylaxis: SCDs, hold chemoprophylaxis at this time FEN/GI: N.p.o., LR at 125 cc/h Dispo: Admit to med telemetry CODE STATUS: Full (2) Leukocytosis: (3) Abdominal pain: (4) Alcohol use disorder: (5) Hypertension: (6) Hyperkalemia: Admission and Anticipated Discharge Date Admission Date: June 24, 2022 Lori Grady is a 57-year-old female with past medical history of hypertension, GERD, hyperlipidemia, tobacco use, alcohol use disorder, liver lesion, chronic lumbar pain, multiple thyroid nodules who presents due to acute abdominal pain with associated nausea and vomiting of 1 day duration. 06/25: Review of Systems Review of Systems: As per above Results & Data Results & Data ([facility]) Vital Signs (Past 12 Hours) Vital Signs Temp Pulse Pulse Resp BP BP BP 06/25/22 04:16 176/114 H 06/24/22 23:14 58 L 06/25/22 03:03 36.9 C 78 20 190/97 H 06/25/22 00:37 37.5 C 64 22 193/82 H 06/24/22 23:37 37.1 C 20 187/97 H 06/24/22 23:26 37.1 C 20 187/97 H 06/24/22 21:00 66 20 06/24/22 20:59 214/109 H 06/24/22 20:59 67 19 06/24/22 20:30 57 L 20 06/24/22 20:00 59 L 20 06/24/22 19:30 06/24/22 19:30 222/115 H 06/24/22 19:22 224/110 H 06/24/22 19:22 20 Pulse Ox O2 Del Method 06/25/22 04:16 06/24/22 23:14 06/25/22 03:03 96 Room Air 06/25/22 00:37 94 Room Air 06/24/22 23:37 95 Room Air 06/24/22 23:26 95 Room Air 06/24/22 21:00 100 06/24/22 20:59 06/24/22 20:59 99 06/24/22 20:30 98 06/24/22 20:00 95 06/24/22 19:30 98 06/24/22 19:30 06/24/22 19:22 06/24/22 19:22 96 Resident Activity Tracking Resident Involvement: Resident Care Provided Care Provided: Adult Hospital Medicine
[2022-06-25 07:28] LABS: Hematocrit (blood only) 45.4 % (37.0-47.0); Hemoglobin 16.3 g/dl (12.0-16.0); Mean Corpuscular Hemoglobin 34.4 pg (25.0-34.0); Mean Corpuscular Hgb Conc 35.9 g/dL (32.0-36.0); Mean Corpuscular Volume 95.8 fL (80.0-100.0); Mean Platelet Volume 10.7 fL (9.4-12.4); Platelet Count 258 K/uL (130-400); RDW Standard Deviation 42.5 fL (36.4-46.3); Red Blood Count 4.74 M/uL (4.20-5.40); White Blood Count 12.76 K/ul (4.8-10.8)
[2022-06-25 07:50] LABS: Albumin Globulin Ratio 1.6 (0.9-2); Albumin Level 4.6 gm/dl (3.4-5.0); BUN Creatinine Ratio 14.3 (10-20); Bilirubin,Total 0.6 mg/dl (0.2-1.0); Calcium 8.4 mg/dl (8.5-10.1); Chol HDL Ratio 2.4 (0-5); Est GFR (African American) 120.8 ml/min; Est GFR (Non-African American) 104.2 ml/min; Globulin 2.8 gm/dl (2.5-4.0); Magnesium 1.4 mg/dl (1.7-2.4); Potassium 3.2 mmol/L (3.5-5.1); Total Protein 7.4 gm/dl (6.0-8.3)
[2022-06-25 07:54] LABS: Basophils # (auto) 0.02 K/uL (0-0.2); Basophils % (auto) 0.2 %; Immature Granulocytes # (auto) 0.04 K/uL (0.01-0.20); Immature Granulocytes % (auto) 0.3 %; Lymphocytes # (auto) 0.71 K/uL (1.2-3.4); Lymphocytes % (auto) 5.6 %; Monocytes # (auto) 0.41 K/uL (0.11-0.59); Monocytes % (auto) 3.2 %; Neutrophils # (auto) 11.58 K/uL (1.40-6.50); Neutrophils % (auto) 90.7 %
[2022-06-25] MEDS ORDERED: LOSARTAN POTASSIUM 50 MG TAB PO SCH (09:00)
[2022-06-25] MEDS ORDERED: THIAMINE HCL 100 MG in SYRINGE 9 ML IV SCH (09:00)
[2022-06-25] MEDS ORDERED: amLODIPine BESYLATE 5 MG TAB PO SCH (09:00)
[2022-06-25] MEDS ORDERED: FOLIC ACID 1 MG in SYRINGE 9.8 ML IV SCH (09:00)
[2022-06-25 09:11] LABS: Estimated Average Glucose 105 mg/dl; Hemoglobin A1C 5.3 % (4.5-5.6)
[2022-06-25] MEDS: PANTOprazole 40 MG in SYRINGE 0 ML IV SCH (09:42)
[2022-06-25] MEDS: LACTATED RINGER'S 1,000 ML IV SCH (09:42)
[2022-06-25] MEDS: SUCRALFATE 1 GM/10 ML UDC PO SCH ×2 (09:44→12:23)
[2022-06-25] MEDS: FAMOTIDINE 20 MG in SYRINGE 3 ML IV SCH (11:07)
--- NOTE | 2022-06-25 15:04 | Discharge Summary ---
Date of Service June 25, 2022 Admission HPI Per Admitting Provider Sharri Grady is a 57-year-old female with past medical history of hypertension, GERD, hyperlipidemia, tobacco use, alcohol use disorder, liver lesion, chronic lumbar pain, multiple thyroid nodules who presents due to acute abdominal pain with associated nausea and vomiting of 1 day duration. She states her symptoms started today around mid-morning and have been progressing. Pain is at epigastrium and left upper/left lower quadrants. No stool changes, constipation, diarrhea, bloody stools, dark stools. Reports associated nausea and vomiting unable to quantify how many times she has vomited. Denies any blood or coffee-ground emesis. She has not been around anyone that is sick as far she is aware. Denies fever, chills, headache, dizziness, vision changes, chest pain, shortness of breath, cough, dysuria, urgency, frequency. She does admit to daily alcohol use of 2-3 drinks per day. Drinks vodka, whiskey, or wine -- states that each drink is a rocks glass of liquor. Did drink a Bloody [place] this morning prior to onset of symptoms. Work-up in ED: CT A/P: No acute infectious or inflammatory findings are identified in the abdomen or pelvis. Mild colonic diverticulosis without CT evidence of acute diverticulitis. Additional findings per radiology read. Lab work showing leukocytosis of 14.98, hemoglobin 16.9, platelet count 250. Potassium 3.3, alk phos 106, normal AST/ALT/T. bili. Total protein 8.5, albumin 5.3, normal lipase, UA showing trace glucose and 1+ ketones, no nitrites or leukocyte esterase. COVID-negative. Admission Exam Per Admitting Provider GENERAL: A&Ox3. In severe pain. HEENT: EOMI. Dry mucous membranes. CHEST/LUNGS: CTAB A/P. No crackles, wheezes, rales, rhonchi. HEART: RRR. No m/g/r. No carotid bruits. ABDOMEN: Very TTP along left side of abdomen, both upper and lower; some epigastric TTP as well. Soft, BS+ x4. No rebound, Stallworth's negative. EXTREMITIES: No cyanosis, no clubbing, no edema SKIN: Warm and dry. No rashes or lesions. NEUROLOGIC: No FND. Principal Diagnosis Abdominal Pain Discharge Exam Constitutional WD/WN, vitals as above Neck trachea midline, no thyromegaly Cardiovascular RRR, no murmur, no edema Gastrointestinal (Abdomen) Nontender to palpation, nondistended. +Bowel sounds. No masses palpated. Skin no rashes, warm and dry Psychiatric A+Ox3, euthymic affect Discharge Data Allergies Allergy/AdvReac Type Severity Reaction Status Date / Time formaldehyde Allergy Mild hives Verified 06/24/22 19:36 amlodipine Allergy Unknown Unknown Verified 06/24/22 20:55 diltiazem Allergy Unknown Unknown Verified 06/24/22 20:55 latex Allergy Unknown itching Verified 06/24/22 19:36 levofloxacin Allergy Unknown Unknown Verified 06/24/22 20:56 simvastatin [From Zocor] Allergy Unknown Unknown Verified 06/24/22 20:57 prednisone AdvReac Unknown Verified 06/24/22 19:28 Consultations 06/24/22 19:46 ED Decision to Admit Stat Ordered Studies 06/24/22 18:11 CT Abd and Pelvis [CT abd pelvis IV con only] Stat 06/24/22 21:10 US duplex mesenteric Stat 06/25/22 00:21 CTA abdomen pelvis w con [CT angio abdomen pelvis w con] Stat Abdomen/Pelvis CT 06/24/22 18:11 CT SCAN OF THE ABDOMEN AND PELVIS WITH IV CONTRAST CLINICAL HISTORY: Left lower quadrant abdominal pain. COMPARISON STUDY: Abdominal CT dated 04/03/2021. TECHNIQUE: Following the IV administration of 87 cc of Optiray 350, CT scan of the abdomen and pelvis is performed from the lung bases to the proximal femora. Images are reviewed in the axial, sagittal, and coronal planes. IV contrast was administered without complication. A dose lowering technique was utilized adhering to the principles of ALARA. The examination is degraded by streak artifact from the arms which could not be elevated above the abdomen or pelvis. CT DOSE: 623.29 mGy.cm FINDINGS: Lung bases: The heart is normal in size and without pericardial effusion. The lung bases are clear noting bibasilar scarring/atelectasis. Liver: The contrast-enhanced liver is normal in size, contour, and attenuation. There is no intrahepatic biliary ductal dilatation. The hepatic veins and portal veins are patent. Gallbladder: Unremarkable. Spleen: Normal in size and attenuation. Pancreas: Unremarkable. Adrenal glands: Unremarkable. Kidneys: The contrast enhanced kidneys are normal in size and without hydronephrosis. The kidneys enhance and excrete symmetrically. Abdominal vasculature: The abdominal aorta is normal in course and caliber noting mild atherosclerotic calcification. Bowel: There is mild colonic diverticulosis without CT evidence of acute diverticulitis. No bowel obstruction is seen. [id number] fecal retention is noted in the right colon. The appendix is well-visualized and normal. Peritoneum: There is no intraperitoneal free air or abdominal ascites. There is a fat-containing umbilical hernia. A fat-containing supraumbilical hernia is seen on image #86. Lymphadenopathy: None. Pelvic viscera: The bladder is normal as visualized. The uterus is surgically absent. No adnexal lesion is seen. Skeletal structures: The skeletal structures are osteopenic. There is mild to moderate lumbosacral spondylosis. No lytic or blastic lesions are seen. IMPRESSION: 1. No acute infectious or inflammatory findings are identified in the abdomen or pelvis. 2. Mild colonic diverticulosis without CT evidence of acute diverticulitis. 3. Additional findings as above. ACT 112: Negative or not required by law. Electronically signed by: Speedy Loyola M.D. 06/24/2022 6:58 PM Mesenteric US 06/24/22 21:10 Exam(s): US OTHER duplex mesenteric EXAM: US Duplex mesenteric arteries. CLINICAL HISTORY: Reason for exam: r/o mesenteric ischemia. TECHNIQUE: Real-time duplex ultrasound scan of the mesenteric arteries. COMPARISON: No relevant prior studies available. FINDINGS: The exam was technically difficult, as the patient was uncooperative. Peak systolic velocities in the superior mesenteric artery were within normal limits, all measuring less than 275 cm/s. The peak systolic velocity recorded in the celiac trunk was elevated at 294 cm/s. This would indicate a stenosis of 70-99%. The peak systolic velocity in the aorta was recorded at 10 9 cm/s. 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 Electronically signed by: Hilario Aly MD 06/24/22 23:16 PM Abdomen/Pelvis CTA 06/25/22 00:21 Exam(s): CTA ABDOMEN + PELVIS With Contrast IV Amt: 116 ml optiray EXAM: CT Angiography Abdomen and Pelvis With Intravenous Contrast CLINICAL HISTORY: Reason for exam: abd pain, celiac trunk stenosis on mesenteric US. TECHNIQUE: Axial computed tomographic angiography images of the abdomen and pelvis with intravenous contrast. CTDI is 8.66 mGy and DLP is 425.37 mGy-cm. Automated exposure control was utilized for the study. A dose lowering technique was utilized adhering to the principles of ALARA. MIP reconstructed images were created and reviewed. CONTRAST: Patient received 116 ml optiray of IV contrast COMPARISON: No relevant prior studies available. FINDINGS: VASCULATURE: Aorta: No acute findings. No abdominal aortic aneurysm. No dissection. Celiac trunk and mesenteric arteries: There are separate origins of the splenic artery and the common hepatic artery, normal variant. No occlusion or stenosis. Renal arteries: No acute findings. No occlusion or significant stenosis. Iliac arteries: No acute findings. No occlusion or significant stenosis. Lung bases: Unremarkable. No mass. No consolidation. ABDOMEN: Liver: Unremarkable. No mass. Gallbladder and bile ducts: Unremarkable. No calcified stones. No ductal dilation. Pancreas: Unremarkable. No ductal dilation. No mass. Spleen: Unremarkable. No splenomegaly. Adrenals: Unremarkable. No mass. Kidneys and ureters: No hydronephrosis. No solid mass. Small amounts of perinephric fluid, worse on the right. Stomach and bowel: Unremarkable. No obstruction. No mucosal thickening. PELVIS: Appendix: No findings to suggest acute appendicitis. Bladder: Unremarkable. No mass. Reproductive: Unremarkable as visualized. ABDOMEN and PELVIS: Intraperitoneal space: Unremarkable. No significant fluid collection. No free air. Bones/joints: No acute fracture. No dislocation. Soft tissues: Unremarkable. Lymph nodes: Unremarkable. No enlarged lymph nodes. IMPRESSION: Normal arteries of the abdomen and pelvis. Electronically signed by: Hilario Aly MD 06/25/22 02:36 AM 06/25/22 06/25/22 06/25/22 Range/Units 06:36 06:36 06:36 WBC 12.76 H (4.8-10.8) K/ul RBC 4.74 (4.20-5.40) M/uL Hgb 16.3 H (12.0-16.0) g/dl POC Hgb (12.0-16.0) g/dl Hct 45.4 (37.0-47.0) % POC Hct (37-47) % MCV 95.8 (80.0-100.0) fL MCH 34.4 H (25.0-34.0) pg MCHC 35.9 (32.0-36.0) g/dL RDW Std Deviation 42.5 (36.4-46.3) fL RDW Coeff of Sarahi 12.0 (11.5-14.5) % Plt Count 258 (130-400) K/uL MPV 10.7 (9.4-12.4) fL Immature Gran % (Auto) 0.3 % Neut % (Auto) 90.7 % Lymph % (Auto) 5.6 % Forest % (Auto) 3.2 % Eos % (Auto) 0.0 % Baso % (Auto) 0.2 % Neut # (Auto) 11.58 H (1.40-6.50) K/uL Lymph # (Auto) 0.71 L (1.2-3.4) K/uL Forest # (Auto) 0.41 (0.11-0.59) K/uL Eos # (Auto) 0.00 (0-0.50) K/uL Baso # (Auto) 0.02 (0-0.2) K/uL Immature Gran # (Auto) 0.04 (0.01-0.20) K/uL POC Sodium (135-144) mmol/L Sodium 136 (136-145) mmol/L POC Potassium (3.3-5.0) mmol/L Potassium 3.2 L (3.5-5.1) mmol/L POC Chloride (101-112) mmol/L Chloride 101 (98-107) mmol/L Carbon Dioxide 25 (21-32) mmol/L POC Total CO2 (24-31) mmol/L Anion Gap 10 (3-11) POC Anion Gap (16-25) mmol/L POC BUN (7-18) mg/dl BUN 8 (6-23) mg/dl Creatinine 0.56 L (0.6-1.2) mg/dl POC Creatinine (0.6-1.3) mg/dl Est Cr Clr Drug Dosing 105.0 Est GFR ( Amer) 120.8 ml/min Est GFR (Non-Af Amer) 104.2 ml/min BUN/Creatinine Ratio 14.3 (10-20) Glucose 135 H (70-99(Fasting)) mg/dl POC Glucose (other) (70-99) mg/dl Estimat Average Glucose 105 mg/dl Hemoglobin A1c 5.3 (4.5-5.6) % Lactate (0.4-2.0) mmol/L Calcium 8.4 L (8.5-10.1) mg/dl POC Ioniz Calcium Camila (1.12-1.32) mmol/l Magnesium 1.4 L (1.7-2.4) mg/dl Total Bilirubin 0.6 (0.2-1.0) mg/dl AST 17 (13-39) U/L ALT 16 (7-52) U/L Alkaline Phosphatase 89 (34-104) U/L Total Protein 7.4 (6.0-8.3) gm/dl Albumin 4.6 (3.4-5.0) gm/dl Globulin 2.8 (2.5-4.0) gm/dl Albumin/Globulin Ratio 1.6 (0.9-2) Triglycerides 50 (0-150) mg/dl Cholesterol 267 H (0-200) mg/dl LDL Cholesterol, Calc 146 mg/dl VLDL Cholesterol, Calc 10 (0-30) mg/dl HDL Cholesterol 111 mg/dl Cholesterol/HDL Ratio 2.4 (0-5) Lipase (11-82) U/L Procalcitonin (0-0.5) ng/ml Urine Color Urine Appearance (Clear) Urine pH (4.5-7.5) Ur Specific Dante (1.000-1.030) Urine Protein (Negative) Urine Glucose (UA) (Negative) Urine Ketones (Negative) Urine Blood (Negative) Urine Nitrite (Negative) Urine Bilirubin (Negative) Urine Urobilinogen (Negative) Ur Leukocyte Esterase (Negative) Urine Opiates Screen (Neg) U Codeine Confrm GC/MS Ur Morphine (GC/MS) Ur Hydrocodone (GC/MS) Ur Norhydrocodone Ur Noroxycodone Urine Oxycodone (GC/MS) U Oxymorphone GC/MS Ur Methadone, Qual (Neg) Ur Hydromorphone (GC/MS) Urine Barbiturates (Neg) Ur Phencyclidine (PCP) (Neg) U Amphetamin/Meth Scrn (Neg) MDMA (Ecstasy) Screen (Neg) U Benzodiazepines Scrn (Neg) Ur Cocaine Metabolite (Neg) U Marijuana (THC) Screen (Neg) Drug Screen Comment Ethyl Alcohol mg/dL (<10.0) mg/dl SARS-CoV-2, RNA, NAAT (NEGATIVE) 06/25/22 06/24/22 06/24/22 Range/Units 00:23 23:15 23:15 WBC (4.8-10.8) K/ul RBC (4.20-5.40) M/uL Hgb (12.0-16.0) g/dl POC Hgb (12.0-16.0) g/dl Hct (37.0-47.0) % POC Hct (37-47) % MCV (80.0-100.0) fL MCH (25.0-34.0) pg MCHC (32.0-36.0) g/dL RDW Std Deviation (36.4-46.3) fL RDW Coeff of Sarahi (11.5-14.5) % Plt Count (130-400) K/uL MPV (9.4-12.4) fL Immature Gran % (Auto) % Neut % (Auto) % Lymph % (Auto) % Forest % (Auto) % Eos % (Auto) % Baso % (Auto) % Neut # (Auto) (1.40-6.50) K/uL Lymph # (Auto) (1.2-3.4) K/uL Forest # (Auto) (0.11-0.59) K/uL Eos # (Auto) (0-0.50) K/uL Baso # (Auto) (0-0.2) K/uL Immature Gran # (Auto) (0.01-0.20) K/uL POC Sodium (135-144) mmol/L Sodium (136-145) mmol/L POC Potassium (3.3-5.0) mmol/L Potassium (3.5-5.1) mmol/L POC Chloride (101-112) mmol/L Chloride (98-107) mmol/L Carbon Dioxide (21-32) mmol/L POC Total CO2 (24-31) mmol/L Anion Gap (3-11) POC Anion Gap (16-25) mmol/L POC BUN (7-18) mg/dl BUN (6-23) mg/dl Creatinine (0.6-1.2) mg/dl POC Creatinine (0.6-1.3) mg/dl Est Cr Clr Drug Dosing Est GFR ( Amer) ml/min Est GFR (Non-Af Amer) ml/min BUN/Creatinine Ratio (10-20) Glucose (70-99(Fasting)) mg/dl POC Glucose (other) (70-99) mg/dl Estimat Average Glucose mg/dl Hemoglobin A1c (4.5-5.6) % Lactate 1.5 (0.4-2.0) mmol/L Calcium (8.5-10.1) mg/dl POC Ioniz Calcium Camila (1.12-1.32) mmol/l Magnesium (1.7-2.4) mg/dl Total Bilirubin (0.2-1.0) mg/dl AST (13-39) U/L ALT (7-52) U/L Alkaline Phosphatase (34-104) U/L Total Protein (6.0-8.3) gm/dl Albumin (3.4-5.0) gm/dl Globulin (2.5-4.0) gm/dl Albumin/Globulin Ratio (0.9-2) Triglycerides (0-150) mg/dl Cholesterol (0-200) mg/dl LDL Cholesterol, Calc mg/dl VLDL Cholesterol, Calc (0-30) mg/dl HDL Cholesterol mg/dl Cholesterol/HDL Ratio (0-5) Lipase (11-82) U/L Procalcitonin (0-0.5) ng/ml Urine Color Urine Appearance (Clear) Urine pH (4.5-7.5) Ur Specific Dante (1.000-1.030) Urine Protein (Negative) Urine Glucose (UA) (Negative) Urine Ketones (Negative) Urine Blood (Negative) Urine Nitrite (Negative) Urine Bilirubin (Negative) Urine Urobilinogen (Negative) Ur Leukocyte Esterase (Negative) Urine Opiates Screen Pos H (Neg) U Codeine Confrm GC/MS Pending Ur Morphine (GC/MS) Pending Ur Hydrocodone (GC/MS) Pending Ur Norhydrocodone Pending Ur Noroxycodone Pending Urine Oxycodone (GC/MS) Pending U Oxymorphone GC/MS Pending Ur Methadone, Qual Neg (Neg) Ur Hydromorphone (GC/MS) Pending Urine Barbiturates Neg (Neg) Ur Phencyclidine (PCP) Neg (Neg) U Amphetamin/Meth Scrn Neg (Neg) MDMA (Ecstasy) Screen Neg (Neg) U Benzodiazepines Scrn Neg (Neg) Ur Cocaine Metabolite Neg (Neg) U Marijuana (THC) Screen Neg (Neg) Drug Screen Comment Pending Ethyl Alcohol mg/dL (<10.0) mg/dl SARS-CoV-2, RNA, NAAT (NEGATIVE) 06/24/22 06/24/22 06/24/22 Range/Units 20:22 19:52 18:43 WBC (4.8-10.8) K/ul RBC (4.20-5.40) M/uL Hgb (12.0-16.0) g/dl POC Hgb (12.0-16.0) g/dl Hct (37.0-47.0) % POC Hct (37-47) % MCV (80.0-100.0) fL MCH (25.0-34.0) pg MCHC (32.0-36.0) g/dL RDW Std Deviation (36.4-46.3) fL RDW Coeff of Sarahi (11.5-14.5) % Plt Count (130-400) K/uL MPV (9.4-12.4) fL Immature Gran % (Auto) % Neut % (Auto) % Lymph % (Auto) % Forest % (Auto) % Eos % (Auto) % Baso % (Auto) % Neut # (Auto) (1.40-6.50) K/uL Lymph # (Auto) (1.2-3.4) K/uL Forest # (Auto) (0.11-0.59) K/uL Eos # (Auto) (0-0.50) K/uL Baso # (Auto) (0-0.2) K/uL Immature Gran # (Auto) (0.01-0.20) K/uL POC Sodium (135-144) mmol/L Sodium (136-145) mmol/L POC Potassium (3.3-5.0) mmol/L Potassium (3.5-5.1) mmol/L POC Chloride (101-112) mmol/L Chloride (98-107) mmol/L Carbon Dioxide (21-32) mmol/L POC Total CO2 (24-31) mmol/L Anion Gap (3-11) POC Anion Gap (16-25) mmol/L POC BUN (7-18) mg/dl BUN (6-23) mg/dl Creatinine (0.6-1.2) mg/dl POC Creatinine (0.6-1.3) mg/dl Est Cr Clr Drug Dosing Est GFR ( Amer) ml/min Est GFR (Non-Af Amer) ml/min BUN/Creatinine Ratio (10-20) Glucose (70-99(Fasting)) mg/dl POC Glucose (other) (70-99) mg/dl Estimat Average Glucose mg/dl Hemoglobin A1c (4.5-5.6) % Lactate (0.4-2.0) mmol/L Calcium (8.5-10.1) mg/dl POC Ioniz Calcium Camila (1.12-1.32) mmol/l Magnesium (1.7-2.4) mg/dl Total Bilirubin (0.2-1.0) mg/dl AST (13-39) U/L ALT (7-52) U/L Alkaline Phosphatase (34-104) U/L Total Protein (6.0-8.3) gm/dl Albumin (3.4-5.0) gm/dl Globulin (2.5-4.0) gm/dl Albumin/Globulin Ratio (0.9-2) Triglycerides (0-150) mg/dl Cholesterol (0-200) mg/dl LDL Cholesterol, Calc mg/dl VLDL Cholesterol, Calc (0-30) mg/dl HDL Cholesterol mg/dl Cholesterol/HDL Ratio (0-5) Lipase (11-82) U/L Procalcitonin (0-0.5) ng/ml Urine Color Yellow Urine Appearance Clear (Clear) Urine pH 8.0 H (4.5-7.5) Ur Specific Dante 1.020 (1.000-1.030) Urine Protein Negative (Negative) Urine Glucose (UA) Trace H (Negative) Urine Ketones 1+ H (Negative) Urine Blood Negative (Negative) Urine Nitrite Negative (Negative) Urine Bilirubin Negative (Negative) Urine Urobilinogen Negative (Negative) Ur Leukocyte Esterase Negative (Negative) Urine Opiates Screen (Neg) U Codeine Confrm GC/MS Ur Morphine (GC/MS) Ur Hydrocodone (GC/MS) Ur Norhydrocodone Ur Noroxycodone Urine Oxycodone (GC/MS) U Oxymorphone GC/MS Ur Methadone, Qual (Neg) Ur Hydromorphone (GC/MS) Urine Barbiturates (Neg) Ur Phencyclidine (PCP) (Neg) U Amphetamin/Meth Scrn (Neg) MDMA (Ecstasy) Screen (Neg) U Benzodiazepines Scrn (Neg) Ur Cocaine Metabolite (Neg) U Marijuana (THC) Screen (Neg) Drug Screen Comment Ethyl Alcohol mg/dL 10.0 H (<10.0) mg/dl SARS-CoV-2, RNA, NAAT NEGATIVE (NEGATIVE) 06/24/22 06/24/22 06/24/22 Range/Units 18:23 18:15 18:15 WBC (4.8-10.8) K/ul RBC (4.20-5.40) M/uL Hgb (12.0-16.0) g/dl POC Hgb 17.3 H (12.0-16.0) g/dl Hct (37.0-47.0) % POC Hct 51 H (37-47) % MCV (80.0-100.0) fL MCH (25.0-34.0) pg MCHC (32.0-36.0) g/dL RDW Std Deviation (36.4-46.3) fL RDW Coeff of Sarahi (11.5-14.5) % Plt Count (130-400) K/uL MPV (9.4-12.4) fL Immature Gran % (Auto) % Neut % (Auto) % Lymph % (Auto) % Forest % (Auto) % Eos % (Auto) % Baso % (Auto) % Neut # (Auto) (1.40-6.50) K/uL Lymph # (Auto) (1.2-3.4) K/uL Forest # (Auto) (0.11-0.59) K/uL Eos # (Auto) (0-0.50) K/uL Baso # (Auto) (0-0.2) K/uL Immature Gran # (Auto) (0.01-0.20) K/uL POC Sodium 143 (135-144) mmol/L Sodium 141 (136-145) mmol/L POC Potassium 3.3 (3.3-5.0) mmol/L Potassium 3.3 L (3.5-5.1) mmol/L POC Chloride 103 (101-112) mmol/L Chloride 105 (98-107) mmol/L Carbon Dioxide 27 (21-32) mmol/L POC Total CO2 24 (24-31) mmol/L Anion Gap 9 (3-11) POC Anion Gap 20.0 (16-25) mmol/L POC BUN 17 (7-18) mg/dl BUN 17 (6-23) mg/dl Creatinine 0.72 (0.6-1.2) mg/dl POC Creatinine 0.7 (0.6-1.3) mg/dl Est Cr Clr Drug Dosing Not Reportable Est GFR ( Amer) 108.5 ml/min Est GFR (Non-Af Amer) 93.6 ml/min BUN/Creatinine Ratio 23.6 H (10-20) Glucose 157 H (70-99(Fasting)) mg/dl POC Glucose (other) 158 H (70-99) mg/dl Estimat Average Glucose mg/dl Hemoglobin A1c (4.5-5.6) % Lactate (0.4-2.0) mmol/L Calcium 9.7 (8.5-10.1) mg/dl POC Ioniz Calcium Camila 1.12 (1.12-1.32) mmol/l Magnesium (1.7-2.4) mg/dl Total Bilirubin 0.9 (0.2-1.0) mg/dl AST 19 (13-39) U/L ALT 20 (7-52) U/L Alkaline Phosphatase 106 H (34-104) U/L Total Protein 8.5 H (6.0-8.3) gm/dl Albumin 5.3 H (3.4-5.0) gm/dl Globulin 3.2 (2.5-4.0) gm/dl Albumin/Globulin Ratio 1.7 (0.9-2) Triglycerides (0-150) mg/dl Cholesterol (0-200) mg/dl LDL Cholesterol, Calc mg/dl VLDL Cholesterol, Calc (0-30) mg/dl HDL Cholesterol mg/dl Cholesterol/HDL Ratio (0-5) Lipase 31 (11-82) U/L Procalcitonin < 0.05 (0-0.5) ng/ml Urine Color Urine Appearance (Clear) Urine pH (4.5-7.5) Ur Specific Dante (1.000-1.030) Urine Protein (Negative) Urine Glucose (UA) (Negative) Urine Ketones (Negative) Urine Blood (Negative) Urine Nitrite (Negative) Urine Bilirubin (Negative) Urine Urobilinogen (Negative) Ur Leukocyte Esterase (Negative) Urine Opiates Screen (Neg) U Codeine Confrm GC/MS Ur Morphine (GC/MS) Ur Hydrocodone (GC/MS) Ur Norhydrocodone Ur Noroxycodone Urine Oxycodone (GC/MS) U Oxymorphone GC/MS Ur Methadone, Qual (Neg) Ur Hydromorphone (GC/MS) Urine Barbiturates (Neg) Ur Phencyclidine (PCP) (Neg) U Amphetamin/Meth Scrn (Neg) MDMA (Ecstasy) Screen (Neg) U Benzodiazepines Scrn (Neg) Ur Cocaine Metabolite (Neg) U Marijuana (THC) Screen (Neg) Drug Screen Comment Ethyl Alcohol mg/dL (<10.0) mg/dl SARS-CoV-2, RNA, NAAT (NEGATIVE) 06/24/22 Range/Units 18:15 WBC 14.98 H (4.8-10.8) K/ul RBC 4.98 (4.20-5.40) M/uL Hgb 16.9 H (12.0-16.0) g/dl POC Hgb (12.0-16.0) g/dl Hct 48.2 H (37.0-47.0) % POC Hct (37-47) % MCV 96.8 (80.0-100.0) fL MCH 33.9 (25.0-34.0) pg MCHC 35.1 (32.0-36.0) g/dL RDW Std Deviation 43.1 (36.4-46.3) fL RDW Coeff of Sarahi 12.1 (11.5-14.5) % Plt Count 250 (130-400) K/uL MPV 10.8 (9.4-12.4) fL Immature Gran % (Auto) 0.4 % Neut % (Auto) 90.3 % Lymph % (Auto) 4.2 % Forest % (Auto) 4.1 % Eos % (Auto) 0.7 % Baso % (Auto) 0.3 % Neut # (Auto) 13.54 H (1.40-6.50) K/uL Lymph # (Auto) 0.63 L (1.2-3.4) K/uL Forest # (Auto) 0.61 H (0.11-0.59) K/uL Eos # (Auto) 0.10 (0-0.50) K/uL Baso # (Auto) 0.04 (0-0.2) K/uL Immature Gran # (Auto) 0.06 (0.01-0.20) K/uL POC Sodium (135-144) mmol/L Sodium (136-145) mmol/L POC Potassium (3.3-5.0) mmol/L Potassium (3.5-5.1) mmol/L POC Chloride (101-112) mmol/L Chloride (98-107) mmol/L Carbon Dioxide (21-32) mmol/L POC Total CO2 (24-31) mmol/L Anion Gap (3-11) POC Anion Gap (16-25) mmol/L POC BUN (7-18) mg/dl BUN (6-23) mg/dl Creatinine (0.6-1.2) mg/dl POC Creatinine (0.6-1.3) mg/dl Est Cr Clr Drug Dosing Est GFR ( Amer) ml/min Est GFR (Non-Af Amer) ml/min BUN/Creatinine Ratio (10-20) Glucose (70-99(Fasting)) mg/dl POC Glucose (other) (70-99) mg/dl Estimat Average Glucose mg/dl Hemoglobin A1c (4.5-5.6) % Lactate (0.4-2.0) mmol/L Calcium (8.5-10.1) mg/dl POC Ioniz Calcium Camila (1.12-1.32) mmol/l Magnesium (1.7-2.4) mg/dl Total Bilirubin (0.2-1.0) mg/dl AST (13-39) U/L ALT (7-52) U/L Alkaline Phosphatase (34-104) U/L Total Protein (6.0-8.3) gm/dl Albumin (3.4-5.0) gm/dl Globulin (2.5-4.0) gm/dl Albumin/Globulin Ratio (0.9-2) Triglycerides (0-150) mg/dl Cholesterol (0-200) mg/dl LDL Cholesterol, Calc mg/dl VLDL Cholesterol, Calc (0-30) mg/dl HDL Cholesterol mg/dl Cholesterol/HDL Ratio (0-5) Lipase (11-82) U/L Procalcitonin (0-0.5) ng/ml Urine Color Urine Appearance (Clear) Urine pH (4.5-7.5) Ur Specific Dante (1.000-1.030) Urine Protein (Negative) Urine Glucose (UA) (Negative) Urine Ketones (Negative) Urine Blood (Negative) Urine Nitrite (Negative) Urine Bilirubin (Negative) Urine Urobilinogen (Negative) Ur Leukocyte Esterase (Negative) Urine Opiates Screen (Neg) U Codeine Confrm GC/MS Ur Morphine (GC/MS) Ur Hydrocodone (GC/MS) Ur Norhydrocodone Ur Noroxycodone Urine Oxycodone (GC/MS) U Oxymorphone GC/MS Ur Methadone, Qual (Neg) Ur Hydromorphone (GC/MS) Urine Barbiturates (Neg) Ur Phencyclidine (PCP) (Neg) U Amphetamin/Meth Scrn (Neg) MDMA (Ecstasy) Screen (Neg) U Benzodiazepines Scrn (Neg) Ur Cocaine Metabolite (Neg) U Marijuana (THC) Screen (Neg) Drug Screen Comment Ethyl Alcohol mg/dL (<10.0) mg/dl SARS-CoV-2, RNA, NAAT (NEGATIVE) Hospital Course (1) Nausea & vomiting: (2) Leukocytosis: (3) Abdominal pain: (4) Alcohol use disorder: (5) Hypertension: (6) Hyperkalemia: Plan Sharri Grady is a 57-year-old female with past medical history of hypertension, GERD, hyperlipidemia, tobacco use, alcohol use disorder, liver lesion, chronic lumbar pain, multiple thyroid nodules who presents due to acute abdominal pain with associated nausea and vomiting of 1 day duration. Abdominal pain Patient presented with severe abdominal pain, nausea, vomiting. Abdomen/pelvis CT showing no acute infectious or inflammatory findings, mild colonic diverticulosis without evidence of acute diverticulitis, fat-containing umbilical hernia, fat-containing supraumbilical hernia, no other abnormalities. No mention of bowel ischemia on CT A/P with IV contrast. Etiology not entirely clear, however favor gastritis vs. peptic ulcer disease. Patient improved fairly quickly after IV fluids and pain/nausea control- tolerated regular diet. Discharged patient on Protonix BID, Famotidine, Zofran. Discussed that if symptoms largely resolve in next day or so, suspect that this was a "GI bug", but if failing to improve further- may indicate peptic ulcer and could require outpatient EGD. Leukocytosis Elevated WBC with left shift, however in setting on frequent vomiting/dehydration and no obvious infectious source- higher suspicion of hemoconcentration. Alcohol use disorder Patient reports 2-3 drinks of whiskey, vodka, or wine per day. 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 Alcohol level negative at time of admission. SHANTA S at risk protocol with Ativan initiated, no use of Ativan needed during admission. Hypertension Takes amlodipineolmesartan at home, but did not take medication on day of admission due to abdominal pain and nausea/vomiting. BP on arrival to emergency department at 220s over 120s. Received hydralazine x1, remained hypertensive without headache/visual changes, etc. Recommend restarting home medications and reevaluating regimen when recovered from acute illness. Total Time Total Time Spent Total Time Spent (In Minutes): <30 Discharge Plan Discharge Items Patient Disposition: Home - Self-Care Reason For Visit: ABD PAIN Discharge Diagnosis: abdominal pain, nausea Activity: Resume your previous activity Non-emergency contact: Primary Care Provider Call non-emergency contact if: your symptoms worsen, your pain is worsening and your temperature is above 101 Follow-up/Referrals: Apple Coffey CRNP [Nurse Practitioner] - 06/26/22 1:30 pm Matt Dixon DO [Primary Care Provider] - Diet: Regular Addtl Attending Provider Instructions: You were seen at [facility] for evaluation of abdominal discomfort. Upon your arrival here, you underwent evaluation to determine the cause of your pain. Thankfully, your imaging and labs did not reveal an significant abnormalities. At discharge, we believe that your discomfort was mos t likely due to irritation of the stomach lining and small bowel (gastritis, possible ulcers) - this can create pain, and also occasionally result in nausea and vomiting. This type of inflammation (gastritis) is often caused when the stomach lining encounters toxins or a virus. Viruses cause inflammation that then can cause pain, nausea, and vomiting. Certain toxins, like alcohol, can further worsen this problem. While your stomach is recovering, start with easy foods first. Small amounts of stuff that is easy to eat (e.g., bread, applesauce, rice). As you feel comfortable with small amounts, you may expand your diet. Avoid dairy products for a few days or until you feel comfortable trying. Upon discharge, please note the following medication adjustments/changes/additions: -- Pantoprazole 40mg twice daily -- Famotidine 20mg daily for the next 10 days, thereafter as needed for breakthrough stomach discomfort -- Zofran ODT 4mg under the tongue, up to twice daily, for nausea -- HOLD ibuprofen (this can also irritate the stomach) and use only as needed. Tylenol is ok. -- You may also utilize [id number] Carafate and Tums Please follow-up with your primary care physician within the next week to review this visit. If you experience worsening abdominal pain not relieved by the above, intractable nausea and vomiting, worsening fevers, chills, shortness of breath, lightheadedness, dizziness, or other worrisome symptoms, please report to the ER immediately for evaluation. Pending Studies at Discharge: No Stand-Alone Forms: My [facility] ChatID, Smoking Cessation Medications and DC Order Prescriptions: New famotidine 20 mg tablet 20 mg PO DAILY Qty: 30 0RF ondansetron 4 mg tablet,disintegrating 4 mg PO Q12H PRN (Reason: nausea and vomiting) Qty: 10 0RF Continued gabapentin 300 mg capsule 300 mg PO Q4 cyclobenzaprine 10 mg tablet 10 mg PO TID PRN (Reason: muscle spasm) Qty: 30 0RF albuterol sulfate [ProAir HFA] 90 mcg/actuation HFA aerosol inhaler 2 puff inhalation Q6H PRN (Reason: shortness of breath or wheezing) Qty: 8.5 0RF fexofenadine 180 mg Tablet 0 mg PO DIRECTED pantoprazole 40 mg tablet,delayed release (DR/EC) 40 mg PO BID amlodipine-olmesartan 5-40 mg tablet 0.5 tab PO DAILY Rx Instructions: take half a tab a day Discontinued ibuprofen 800 mg tablet 800 mg PO TID Discharge Orders: Discharge Order (Routine); Ordered 06/25/22 Ordered By: Miky Samano/Other Patient Handouts: Famotidine Oral Tablet, Ondansetron Oral Tablet Admission Data Admit Date/Time: 06/24/22 20:52 Attending Provider: Miky Chacon Admit Provider: Magno Hernandez Primary Care Provider: Matt Dixon Other Providers: Dean Soler Other Interventions: Discharge Summary Assessment (RN) Last Done: 06/25/22 15:19 Supervising Physician Co-Signing Physician Notes I personally examined the patient and verified all [place]inter[place] points of history and exam, discussed case, and agree with decision making with Dr Beltrán feeling well enough that she would like to go home. at chicken and rice without any nausea/vomiting/significant pain vitals noted nad heent nc at mmm abd soft nd nt no epigastric tenderness/guarding/rebound intractable nausea/vomiting - now tractable. given abrupt onset/resolution - most likely viral GE. with EtOH hx PUD possible but with rapid resolution of symptoms/benign exam/no findings of bleeding - far less likely. d/w pt - if doesn't get completely better then would need to consider EGD. close f/u PCP. leukocytosis most likely demargination from vomiting and/or volume contraction safe/stable for home. elevated BP - likely situational - outpt f/u otherwise as above Resident Activity Tracking Resident Involvement: Resident Care Provided Care Provided: Adult Hospital Medicine
--- NOTE | 2022-06-25 18:05 | Billing Data ---
Date of Service June 25, 2022 Coding Level of Care Code 20035 IN/OBS DISCH 30 MIN/LESS
--- NOTE | 2022-06-25 19:50 | Billing Data ---
Date of Service June 25, 2022 Coding Level of Care Code 62676 INT INP/OBS CARE
[2022-06-27 10:27] LABS: Codeine Urine NEGATIVE ng/mL (<50); Hydrocodone Urine NEGATIVE ng/mL (<50); Hydromor Urine 305 ng/mL (<50); Morphine Urine 618 ng/mL (<50); Norhydrocodone Conf Ur NEGATIVE ng/mL (<50); Noroxycodone Urine NEGATIVE ng/mL (<50); Oxycodone Urine NEGATIVE ng/mL (<50); Oxymorph Urine NEGATIVE ng/mL (<50)
== END 2022-06-25 15:55 | disposition home or self-care (01) | DRG 392 ==
LOC: ED 18:01 → SUATTDRO 20:52 → 2N 20:52
DX: Z91.14 Patient's other noncompliance with medication regimen; I10 Essential (primary) hypertension; K21.9 Gastro-esophageal reflux disease without esophagitis; Z20.822 Contact with and (suspected) exposure to COVID-19; E86.0 Dehydration; Z79.899 Other long term (current) drug therapy; Z88.1 Allergy status to other antibiotic agents; D72.829 Elevated white blood cell count, unspecified; K29.70 Gastritis, unspecified, without bleeding; E87.6 Hypokalemia; Z91.040 Latex allergy status; K57.30 Diverticulosis of large intestine without perforation or abscess without bleeding; Z88.0 Allergy status to penicillin; R10.9 Unspecified abdominal pain; F17.210 Nicotine dependence, cigarettes, uncomplicated